=== PATIENT | female | born 1960 | race Caucasian/White ===

== ENCOUNTER 2025-05-08 08:32 | Outpatient (REF) | payer OTHER, SELFPAY ==
--- NOTE | ~2025-05-08 | XR_ITS ---
CLINICAL HISTORY: K63.9 - Disease of intestine, unspecified 3 view bilateral hand Comparison: None Findings: Left hand: There is joint space narrowing and marginal osteophyte formation at the 2nd-5th DIP joints. The metacarpophalangeal joint spaces are preserved. No acute fracture or dislocation is identified. Soft tissue structures appear within normal limits. Right hand: There is joint space narrowing and marginal osteophyte formation at the 2nd-4th DIP joints and radiocarpal joint. The metacarpophalangeal joint spaces are preserved. No acute fracture or dislocation is identified. Chondrocalcinosis is seen in the triangular fibrocartilage complex. IMPRESSION: 1. Degenerative changes in bilateral hands. 2. Chondrocalcinosis in the right triangular fibrocartilage complex. This document has been electronically signed by: Nithya Patrick on 05/09/2025 09:04:49
--- NOTE | ~2025-05-08 | XR_ITS ---
CLINICAL HISTORY: K63.9 - Disease of intestine, unspecified 8 view bilateral wrist Comparison: None Findings: Right wrist: Radiocarpal joint space narrowing and marginal osteophyte formation is present. No acute fracture or dislocation is identified. Chondrocalcinosis is seen of the triangular fibrocartilage complex. Left wrist: Mild radiocarpal joint space narrowing is present. No acute fracture or dislocation is identified. Soft tissue structures appear within normal limits. IMPRESSION: 1. Mild degenerative changes in bilateral radiocarpal joints. 2. Chondrocalcinosis in the right triangular fibrocartilage complex. This document has been electronically signed by: Nithya Patrick on 05/09/2025 08:57:22
--- NOTE | ~2025-05-08 | XR_ITS ---
CLINICAL HISTORY: K63.9 - Disease of intestine, unspecified 3 view bilateral foot Comparison: None Findings: Right foot: No acute fracture or dislocation is identified. Degenerative changes are seen at the midfoot with joint space narrowing of the 2nd and 3rd tarsometatarsal joints. Small plantar calcaneal enthesophyte is present. Subcutaneous edema is seen in the dorsal foot. Left foot: No acute fracture or dislocation is identified. Small plantar and posterior calcaneal enthesophytes are present. Subcutaneous edema is seen in the dorsal foot. IMPRESSION: 1. No acute osseous abnormality is identified in bilateral feet. 2. Degenerative changes in the right midfoot with joint space narrowing of the 2nd and 3rd tarsometatarsal joints. 3. Small bilateral calcaneal enthesophytes. This document has been electronically signed by: Nithya Patrick on 05/09/2025 08:51:30
--- NOTE | ~2025-05-08 | XR_ITS ---
CLINICAL HISTORY: K63.9 - Disease of intestine, unspecified 4 view bilateral knee Comparison: None Findings: Right knee: Mild medial femorotibial joint space narrowing and marginal osteophyte formation is present. No acute fracture or dislocation is identified. Chondrocalcinosis is present. Small joint effusion is present. Left knee: Mild marginal osteophyte formation is seen in the medial femorotibial joint. The femorotibial joint space appears preserved. No acute fracture or dislocation is identified. Soft tissue structures appear within normal limits. IMPRESSION: 1. No acute osseous abnormality is identified in bilateral knees. 2. Mild degenerative changes of the right medial femorotibial joint with chondrocalcinosis and small joint effusion. 3. Mild degenerative changes of the left medial femorotibial joint. This document has been electronically signed by: Nithya Patrick on 05/09/2025 08:50:58
[2025-05-08 10:15] LABS: MANUAL DIFF FLAG NO
[2025-05-08 10:54] LABS: Basophils Percent Auto 0.3 % (0-2); Eosinophils Absolute Auto 0.1 X10*3/uL (0.0-0.4); Eosinophils Percent Auto 0.9 % (0-4); Hematocrit 34.3 % (37.0-47.0); Hemoglobin 11.8 g/dl (12.0-16.0); Imm Gran Abs Auto 0.05 X10*3/uL (0.00-0.03); Imm Gran Pct Auto 0.8 % (0.0-0.4); Lymphocytes Absolute Auto 1.4 X10*3/uL (1.2-4.9); Lymphocytes Percent Auto 21.4 % (20-40); Mean Corpuscular HGB Conc 34.4 g/dl (31.0-35.0); Mean Corpuscular Hemoglobin 30.4 pg (27.0-33.0); Mean Corpuscular Volume 88.4 fL (80.0-98.0); Mean Platelet Volume 9.1 fL (9.4-12.3); Monocytes Absolute Auto 0.5 X10*3/uL (0.1-1.2); Monocytes Percent Auto 7.2 % (2-11); Neutrophils Absolute Auto 4.6 x10*3/uL (2.0-8.3); Neutrophils Percent Auto 69.4 % (45-73); Platelet Count 257 X10*3/uL (160-400); Red Blood Count 3.88 X10*6/uL (4.20-5.50); Red Cell Distribution Width 12.7 % (11.0-16.0); White Blood Count 6.6 X10*3/uL (4.8-10.8)
[2025-05-08 11:43] LABS: Alanine Aminotransferase 22 U/L (0-31); Albumin Level 4.6 g/dL (3.5-5.0); Alkaline Phosphatase 71 U/L (39-117); Anion Gap 12 (12-20); Aspartate Amino Transferase 22 U/L (5-31); Bilirubin Total 0.7 mg/dL (0.0-1.0); Blood Urea Nitrogen 10 mg/dL (9-16); C Reactive Protein 0.69 mg/dL (< or = 0.50); Calcium 9.3 mg/dL (8.4-10.2); Carbon Dioxide 24 mmol/L (22-29); Chloride 108 mmol/L (96-108); Estimated Glomerular Filt Rate > 60; Glucose Random 97 mg/dL (60-115); Potassium 3.6 mmol/L (3.3-5.1); Sodium 140 mmol/L (135-145)
[2025-05-08 11:47] LABS: Rheumatoid Factor < 13.0 IU/mL (<15.0)
[2025-05-08 11:55] LABS: Erythrocyte Sedimentation Rate 9 MM/HR (0-20)
[2025-05-08 12:10] LABS: HBc Num1 0.07 S/CO (0.00-0.79); HBsAGNum1 0.31 S/CO (0.00-0.99); Hepatitis A Antibody IgM 0.16 Index (0-0.79); Hepatitis B Core Antibody Nonreactive (Nonreactive); Hepatitis B Surface Antigen Negative (Negative); ~HepC Num1 0.09 S/CO (0.00-0.79); ~Hepatitis A Antibody IgM Nonreactive (Nonreactive); ~Hepatitis B Surface Antibody NONREACTIVE (Nonreactive); ~Hepatitis C Antibody Nonreactive (Nonreactive)
[2025-05-11 08:33] LABS: TS Negative Control Passed; TS Panel A 0; TS Panel B 0; TS Positive Control Passed; TSpotTB Negative (Negative)
[2025-05-14 13:48] LABS: Cyclic Citrullinated Peptide 79 UNITS
== END 2025-05-08 08:33 | disposition home or self-care (01) ==
LOC: HO.XRAY 08:32
PROVIDERS: PCP Student in an Organized Health Care Education/Training Program; Visit Provider Student in an Organized Health Care Education/Training Program
DX: K63.9 Disease of intestine, unspecified (principal); M07.60 Enteropathic arthropathies, unspecified site; K50.90 Crohn's disease, unspecified, without complications
CPT/HCPCS: 36415; 73110; 73130; 73562; 73620; 80053; 85025; 85652; 86140; 86200; 86431; 86481; 86704; 86706; 86709; 86803; 87340; 99202

== ENCOUNTER 2025-05-08 08:32 | Outpatient (AMB) | payer OTHER, SELFPAY ==
--- NOTE | 2025-05-08 08:35 | A.OFFVIS_ITS ---
Vital Signs 05/08/25 08:55 Height 5 ft Weight 175 lb 4.28 oz BMI 34.2 BP 134/80 Blood Pressure Location Lt brachial Position Sitting Pulse 69 Pulse Source Pulse Oximeter Pulse Oximetry (%) 98 Oxygen Delivery Method Room Air Intake Visit Reasons: RA (urgent referral) /New Patient Intake Note: Patient presents for RA. Allergies penicillin V Allergy (Severe, Verified 05/08/25 08:44) Hives aspirin Allergy (Mild, Verified 05/08/25 08:44) Heartburn sodium sulfate Allergy (Mild, Verified 05/08/25 08:44) Nausea Medication List - Last Reconciled 05/08/25 by Milli Diehl MD amlodipine-olmesartan 5-20 mg 1 tab PO DAILY ezetimibe 10 mg PO DAILY upadacitinib ER (Rinvoq) 15 mg PO DAILY HPI Comments Details: Patient is a 64-year-old female with hypertension, hyperlipidemia, Crohn's disease complicated by IBD related inflammatory arthritis here today to establish care Patient recently moved to the area from [place] Crohn's disease, diagnosed in her 20s. Started on azol Follows with GI and gets colonoscopies every 2 years Has had a few hospitalizations for abdominal pain/flares that resolved with prednisone Rheumatoid arthritis diagnosed 2018 Previously on Methotrexate SC - did not tolerate the side effects Leflunomide effective for a few years but then had breakthrough synovitis 11/2024 Switched to Rinvoq - 12/2024 Currently holding her Rinvoq in preparation for her spinal surgery 05/13/2025 Family History: Dad - Eczema Sister - Lupus Sister - Fibromyalgia [facility] Surgical History (Updated 05/08/25 @ 08:50 by PERLITA West) History of shoulder replacement Family History (Updated 05/08/25 @ 08:53 by PERLITA West) Maternal Grandmother Cancer Paternal Grandmother COPD (chronic obstructive pulmonary disease) Sister Cancer Social History (Updated 05/08/25 @ 08:55 by PERLITA West) Household Members: Family Housing: House Alcohol intake: current Comment: Rare Patient Tobacco Use Status: Former Tobacco user Years Smoked: 10 Review of Systems Const Details: Review of Systems Constitutional: Denies fever, chills, weight loss ENT: Denies vision changes, eye pain or eye redness, dental caries, dry mouth GI: Denies nausea, vomiting, diarrhea, abdominal pain, change in BM Pulm: Denies SOB, SOLIS, hemoptysis, wheezing Cards: Denies chest pain, palpitations Skin: Denies Raynaud's, rash, nail changes, photosensitivity, [employer]: Denies headaches, weakness, paresthesias, recurrent falls MSK: as per HPI All other systems reviewed and are unremarkable except noted above Physical Exam Vital Signs: Last Vital Signs Pulse 69 05/08/25 08:55 BP 134/80 05/08/25 08:55 Pulse Ox 98 05/08/25 08:55 Oxygen Delivery Method Room Air 05/08/25 08:55 BMI result Body Mass Index 34.2 Vital signs reviewed Physical Examination CONSTITUITIONAL Patient alert and cooperative. Well appearing and in no apparent painful distress HEENT Conjunctiva and sclera clear. ?No lymphadenopathy. ? CHEST/RESPIRATORY SYSTEM Normal respiratory effort and able to speak in complete sentences. ?Clear to auscultation bilaterally. ?No crackles, rales, rhonchi, wheezes heard. CARDIAC SYSTEM Regular rate and rhythm. ?S1 and S2 heard no murmurs. ?Radial pulses intact bilaterally MSK Hands: ?Able to make a fist. No synovitis noted to the MCPs, PIPs or DIPs. ?No tenderness to palpation of these joints. No deformities noted. ? Wrists: ?Full range of motion at the wrists without pain. ?No tenderness to palpation or synovitis noted to the wrists. Elbows: Full range of motion without pain. No tenderness, weakness, swelling, increased warmth or erythema. Shoulders: Full range of active range of motion without pain. No tenderness, weakness, swelling, increased warmth or erythema. Knees: ?Full range of motion. ?No tenderness, swelling, increased warmth or eryt neeida.?Crepitations felt bilaterally Ankles: Full range of motion. ?No tenderness, swelling, increased warmth or erythema.? 2+ pitting edema up to the tibial tuberosity bilaterally Feet: ?Negative squeeze test. ?No tenderness to palpation or swelling of the MTPs. Tender points:?No tenderness to palpation of the bilateral trapezius, supraspinatus, greater trochanters, anterior costochondral junctions, bilateral gluteal areas, bilateral suboccipital muscle insertions SKIN Skin intact without rashes. Results Reviewed Results Reviewed: No results to review Assessment & Plan Assessment & Plan (1) Inflammatory bowel arthritis: Comment: Inflammatory arthritis diagnosed 2019 Previously on Methotrexate SC - did not tolerate the side effects Leflunomide effective for a few years but then had breakthrough synovitis 11/2024 Switched to Rinvoq - 12/2024 Code(s): K63.9 - Disease of intestine, unspecified; M07.60 - Enteropathic arthropathies, unspecified site Category: Medical Plan: Patient is a 64-year-old female with history of Crohn's disease now we will presenting to establish care for inflammatory arthritis. Previously diagnosed with rheumatoid arthritis versus Crohn's related arthritis. Currently on Rinvoq, this is being held in preparation for spinal surgery next week. On exam I do not see any evidence of inflammatory arthritis or active synovitis. We will check x-rays, labs and get prior authorization for Rinvoq. Plan - CBC, CMP, ESR, CRP, hepatitis panel, T spot, RF, CCP - XRs hands, wrists, knees and feet - Rinvoq 15mg daily - RTC 3 months Plan I spent 45 minutes reviewing the record and labs, taking a history, examining the patient, discussing the treatment plan, ordering diagnostic work up and documenting in the medical record Orders: Orders Complete Blood Count Auto Diff Today K50.90 - Crohn's disease, unspecified, without complications, K63.9 - Disease of intestine, unspecified, M07.60 - Enteropathic arthropathies, unspecified site Comprehensive Met. Panel Today K50.90 - Crohn's disease, unspecified, without complications, K63.9 - Disease of intestine, unspecified, M07.60 - Enteropathic arthropathies, unspecified site Erythrocyte Sedimentation Rate Today K50.90 - Crohn's disease, unspecified, without complications, K63.9 - Disease of intestine, unspecified, M07.60 - Enteropathic arthropathies, unspecified site Hepatitis A,B,C Profile Today K50.90 - Crohn's disease, unspecified, without complications, K63.9 - Disease of intestine, unspecified, M07.60 - Enteropathic arthropathies, unspecified site XR foot LT min 3V Today K63.9 - Disease of intestine, unspecified, M07.60 - Enteropathic arthropathies, unspecified site XR foot RT min 3V Today K63.9 - Disease of intestine, unspecified, M07.60 - Enteropathic arthropathies, unspecified site XR hand RT min 3V Today K63.9 - Disease of intestine, unspecified, M07.60 - Enteropathic arthropathies, unspecified site XR wrist LT min 3V Today K63.9 - Disease of intestine, unspecified, M07.60 - Enteropathic arthropathies, unspecified site C Reactive Protein Today K50.90 - Crohn's disease, unspecified, without complications, K63.9 - Disease of intestine, unspecified, M07.60 - Enteropathic arthropathies, unspecified site Rheumatoid Factor Today K50.90 - Crohn's disease, unspecified, without complications, K63.9 - Disease of intestine, unspecified, M07.60 - Enteropathic arthropathies, unspecified site Cyclic Citrullinated Peptide Today K50.90 - Crohn's disease, unspecified, without complications, K63.9 - Disease of intestine, unspecified, M07.60 - Enteropathic arthropathies, unspecified site T Spot TB Today K50.90 - Crohn's disease, unspecified, without complications, K63.9 - Disease of intestine, unspecified, M07.60 - Enteropathic arthropathies, unspecified site XR knee LT 3V Today K63.9 - Disease of intestine, unspecified, M07.60 - Enteropathic arthropathies, unspecified site XR knee RT 3V Today K63.9 - Disease of intestine, unspecified, M07.60 - Enteropathic arthropathies, unspecified site XR hand LT min 3V Today K63.9 - Disease of intestine, unspecified, M07.60 - Enteropathic arthropathies, unspecified site XR wrist RT min 3V Today K63.9 - Disease of intestine, unspecified, M07.60 - Enteropathic arthropathies, unspecified site Medications: New upadacitinib ER (Rinvoq) 15 mg PO DAILY 30 tabs 5RF K50.90 - Crohn's disease, unspecified, without complications, K63.9 - Disease of intestine, unspecified, M07.60 - Enteropathic arthropathies, unspecified site Coding Level of Care Code New Pt Level 4 (51915) Complex EM visit Add On G2211 Diagnoses Inflammatory bowel arthritis K63.9; M07.60
--- OUTSIDE RECORDS SUMMARY | 2025-05-08 08:44 | XMS_ITS | Clinical Summary ---
Author Organization [address] [facility] Address [address] [place] [address] Phone Care Team Providers Care Data Modeling Architect Name Role Phone Shala Hagan MD Primary Care Provider [phone] Allergies Active Allergy Reactions Criticality Noted Date Comments Aspirin Diarrhea,GI intolerance High 10/26/2017 Iodinated Contrast Media Hives High 12/11/2024 Losartan Headache 01/29/2018 Penicillins Hives,Itching High 10/26/2017 Sulfa (Sulfonamide Antibiotics) Nausea Only 10/26/2017 Medications cholecalciferol (VITAMIN D-3) 10 mcg (400 unit) tablet Take 25 Units by mouth daily. Active fluticasone propionate (FLONASE) 50 mcg/actuation nasal spray Administer 2 sprays into affected nostril(s) 1 (one) time each day if needed. Active upadacitinib (Rinvoq) 15 mg tablet extended release 24 hr Take 15 mg by mouth daily. Checking with surgeons office when to stop 5 Active amLODIPine-olme sartan (RODERICK) 5-20 mg per tablet Take 1 tablet by mouth 1 (one) time each day. 90 tablet 1 5 10/04/20 25 Active ezetimibe (ZETIA) 10 mg tablet Take 1 tablet (10 mg total) by mouth 1 (one) time each day. 90 each 1 5 10/04/20 25 Active MAGNESIUM GLYCINATE ORAL Take 240 mg by mouth 1 (one) time each day. Active vit B complex no.12/niacin,B3 , (VITAMIN B COMPLEX NO.12-NIACIN ORAL) Take by mouth. Activ e Active Problems Problem Noted Date Diagnosed Date Radiculopathy, lumbar region 04/28/2025 Rheumatoid arthritis in delphine ssion ([facility] V24, [facility] V28) 04/07/2025 Primary hypertension 04/07/2025 Mixed hyperlipidemia 04/07/2025 H/O Crohn's disease 04/07/2025 History of renal stone 04/07/2025 Plantar fasciitis, bilateral 04/07/2025 Lumbar disc herniation 04/07/2025 Assessment & Plan (04/25/2025 11:30 AM EDT): I reviewed the imaging findings in detail with Ms. Diop using a spine model and I believe she is symptomatic from the right L5-S1 disc herniation particular the component compressing the exiting L5 root in the foramen. We discussed treatment options including physical therapy +/- traction, a right L5 TFE and a microdiscectomy. At this point, she has been dealing with this for nearly 2 years and it is significantly impacting her daily life. She would like to proceed with definitive treatment and be able to move on. We discussed the details, risk, benefits and anticipated postoperative course of a right L5-S1 MIS discectomy, all questions were answered and she wishes to proceed. Encounters Date Type Department Care Team Description 04/25/2025 10:30 AM EDT Consult Neurosurgery [facility] - [address] [place] [address] Chelsi Nicole MD Lumbar disc herniation 04/07/2025 10:45 AM EDT Office Visit Internal Medicine - [address] [place] [phone] Shala Hagan MD Adult general medical examination (Primary Dx); Other fatigue; Rheumatoid arthritis in remission ([facility] V24, [facility] V28); Seasonal allergies; Mixed hyperlipidemia; Primary hypertension; Vitamin D deficiency; H/O Crohn's disease; History of renal stone; Plantar fasciitis, bilateral; Other abnormal glucose; Lumbar disc herniation from Last 3 Months Surgical History Surgery Date Site/Laterality Comments OTHER SURGICAL HISTORY Right PROCEDURE: [place] EXC LESION TENDON SHEATH/CAPSULE W/SYNVCT FOOT; COMMENT: Ganglion cyst HAND SURGERY PROCEDURE: HISTORICAL HAND SURGERY BREAST LUMPECTOMY PROCEDURE: HISTORICAL BREAST LUMPECTOMY COLONOSCOPY 10/23/2017 PROCEDURE: HISTORICAL COLONOSCOPY; COMMENT: Tubular Adenomas. Repeat 5 yrs SHOULDER SURGERY Left PLANTAR FASCIA SURGERY Bilateral TOTAL SHOULDER ARTHROPLASTY Left Medical History Medical History Date Comments GERD (gastroesophageal reflux disease) 12/11/2018 hx of Osteoarthritis 10/26/2017 DX:Osteoarthriti s; COMMENT: knee Allergic rhinitis 12/03/2015 DX:Allergic rh initis Crohn's disease ([facility] V24 , [facility] V28) 10/26/2017 DX:Crohn's disease ([facility]) Essential hypertension 02/05/2018 DX:Essent ial hypertension Hyperlipidemia 10/26/2017 DX:Hyperlipidemi a Recurrent nephrolithiasis 10/26/2017 DX:Rec urrent nephrolithiasis Tubular adenoma 12/11/2018 DX:Tubular adeno ma Rheumatoid arthritis in delphine ssion ([facility] V24, [facility] V28) 04/07/2025 H/O Crohn's disease 04/07/2025 History of renal stone 04/07/2025 Plantar fasciitis, bilateral 04/07/2025 Rheumatoid arthritis ([facility] V24, [facility] V28) Crohn's disease ([facility] V24 , [facility] V28) Hiatal hernia Social History Tobacco Use Types Packs/Day Years Used Date Smoking Tobacco: Former Cigarettes 0 11/27/1978 - 11/27/2003 Smokeless Tobacco: Never Alcohol Use Standard Drinks/Week Comments Yes 0 (1 standard drink = 0.6 oz pur e alcohol) RARE Housing Instability Answer Date Recorde d Are you worried that in the next 2 months you may not have stable housing? No 04/02/2025 Food Access & Nutrition Answer Date Rec orded Do you have access to a vari ety of food including fruits and vegetables? Yes 04/02/2025 Access to Healthcare Answer Date Record ed Within the last 3 months, [place] many times did you visit the emergency department for your medical care? 0 04/02/2025 Health Literacy Answer Date Recorded How often do you need to hav e someone help you when you read instructions, pamphlets, or other written material from your doctor or pharmacy? Never 04/02/2025 Caregiver: How often do you need to have someone help you when you read instructions, pamphlets, or other written material from your doctor or pharmacy? Not on file 04/02/2025 Financial Risk Answer Date Recorded How hard is it for you to pa y for the very basics like food, housing, medical care, and air conditioning / heating? Not very hard 04/02/2025 Transportation Answer Date Recorded Has the lack of transportati on kept you from meetings, work, or from getting things needed for daily living? No Has the lack of transportati on kept you from medical appointments or from getting medications? No 04/02/2025 Social Isolation Answer Date Recorded How often do you feel lonely or isolated from th ose around you? Never 04/02/2025 Food Risk Answer Date Recorded Within the past 12 months we worried whether our food would run out before we got money to buy more. Never true 04/02/2025 Within the past 12 months th e food we bought just didn't last and we didn't have money to get more. Never true 04/02/2025 Dependent Care Answer Date Recorded Do you need help finding or paying for care for your loved ones. For example, summer child caregiver or elderly care for an older adult? No 04/02/2025 Education Answer Date Recorded Do you think completing more education or training, like finishing a GED, going to college, or learning a trade, would be helpful for you? N/A 04/02/2025 Employment and Income Answer Date Recor ded During the last four weeks, have you been actively looking for work? No 04/02/2025 Living Situation Answer Date Recorded What is your living situation? 0 04/02/2025 Education Answer Date Recorded What is the highest level of school you have completed or the highest degree you have received? High school graduate 04/07/2025 Comments Unknown Sex and Gender Information Value Date Recorded Sex Assigned at Not on file Legal Sex Female 2:38 AM EST Gender Identity Not on file Sexual Orientation Not on file Obstetrics History Last Filed Vital Signs Vital Sign Reading Time Taken Comments Blood Pressure 112/65 04/07/2025 10:58 AM EDT Pulse 87 04/07/2025 10:58 AM EDT Temperature 36.6 ??C (97.8 ??F) 04/07/2025 10:58 AM E DT Respiratory Rate - - Oxygen Saturation 98% 04/07/2025 10:58 AM EDT Inhaled Oxygen Concentration - - Weight 76.2 kg (168 lb) 05/06/2025 11:00 AM EDT Height 152.4 cm (5') 05/06/2025 11:00 AM EDT Body Mass Index 32.81 05/06/2025 11:00 AM EDT Plan of Treatment Upcoming Encounters Date Type Department Care Team (Latest Contact Info) Description 05/13/2025 11:30 AM EDT Hospital Encounter [facility] [address] [place] [phone] Chelsi Nicole MD [address] [place] [address] 05/13/2025 11:30 AM EDT - 05/13/2025 1:[address] [facility] [address] [place] [phone] Chelsi Nicole MD [address] [place] [address] RIGHT L5-S1 microlumbar discectomy/metrix [49819 (CPT??)] 05/26/2025 9:40 AM EDT Consult Gastroenterology - [address] [phone] Maryellen Valentine NP [address] [place] [address] 10/16/2025 10:00 AM EST Office Visit Internal Medicine - [address] [phone] Shala Hagan MD [address] [address] Scheduled Procedures Name Priority Associated Diagnoses Date/Ti me DISCECTOMY LUMBAR Radiculopathy, lumbar region 05/13/2025 11:30 AM EDT Health Maintenance Due Date Last Done Comments Breast Cancer Screening 1961 Cervical Cancer Screening: Pap Smear 1982 Zoster Vaccines (1 of 2) 2011 Pneumococcal Vaccine: 50+ Years (2 of 2 - PCV) 07/19/2018 07/19/2017 COVID-19 Vaccine (2 - Moderna risk series) 01/27/2021 12/30/2020 Colorectal Cancer Screening: Colonoscopy 03/28/2025 HIV Screening 03/28/2025 Influenza Vaccine (Season Ended) 2025 08/05/2021, 09/03/2019, 07/28/2017, Additional history exists Depression Screening 04/02/2026 04/02/2025 Social Influencers of Health Screening 04/02/2026 04/02/2025 Hypertension/CHF/CAD Annual BMP Blood Test 04/07/2026 04/07/2025, 07/04/2021 DTaP,Tdap,and Td Vaccines (2 - Td or Tdap) 12/08/2026 12/08/2016 Cholesterol Screening (Lipid Panel) 04/07/2030 04/07/2025 RSV Immunization Adult Patients (1 - 1-dose 75+ series) 2036 Pneumococcal Vaccine: Pediatrics (0 to 5 Years) and At-Risk Patients (6 to 64 Years) Aged Out 07/19/2017 No longer eligible based on patient's age to complete this topic Hepatitis C Screening Completed 01/01/2025 HIB Vaccines Aged Out No longer eligi ble based on patient's age to complete this topic HPV Vaccines Aged Out No longer eligi ble based on patient's age to complete this topic Hepatitis A Vaccines Aged Out No long er eligible based on patient's age to complete this topic Hepatitis B Vaccines Aged Out No long er eligible based on patient's age to complete this topic IPV Vaccines Aged Out No longer eligi ble based on patient's age to complete this topic MMR Vaccines Aged Out No longer eligi ble based on patient's age to complete this topic Meningococcal ACWY Vaccine Aged Out N o longer eligible based on patient's age to complete this topic Meningococcal B Vaccine Aged Out No l onger eligible based on patient's age to complete this topic RSV Immunization Patients Under 20 months Aged Out No longer eligible based on patient's age to complete this topic Varicella Vaccines Aged Out No longer eligible based on patient's age to complete this topic Procedures Procedure Name Priority Date/Time Associated Diagnosis Comments CBC WITH AUTO DIFFERENTIAL Routine 04/07/2025 11:35 AM EDT Adult general medical examination Other fatigue CBC AND DIFFERENTIAL Routine 04/07/2025 11:35 AM EDT Adult general medical examination Other fatigue HEMOGLOBIN A1C Routine 04/07/2025 11:35 AM EDT Adult general medical examination Other abnormal glucose VITAMIN B12 Routine 04/07/2025 11:35 AM EDT Adult general medical examination Other fatigue COMPREHENSIVE METABOLIC PANEL Routine 04/07/2025 11:35 AM EDT Adult general medical examination Other fatigue LIPID PANEL WITH REFLEX TO DIRECT LDL Routine 04/07/2025 11:35 AM EDT Adult general medical examination Mixed hyperlipidemia VITAMIN D 25 HYDROXY Routine 04/07/2025 11:35 AM EDT Adult general medical examination Vitamin D deficiency THYROID STIMULATING HORMONE WITH REFLEX TO FREE T4 AND FREE T3 Routine 04/07/2025 11:35 AM EDT Adult general medical examination Other fatigue from Last 3 Months Results * Thyroid stimulating hormone with reflex to free t4 and free t3 (04/07/2025 11:35 AM EDT) TSH 1.18 0.40 - 4.00 mcIU/mL LAB CHEMISTRY METHOD 04/07/2025 4:11 PM EDT [facility] Blood Venous blood specimen / Unknown Venipuncture / Unknown 04/07/2025 11:35 AM EDT 04/07/2025 11:35 AM EDT us Shala Hagan MD LAB BLOOD ORDERABLES Final Resul t [facility] [address] [place] [address], [place] [phone] * (ABNORMAL) Lipid panel with reflex to direct LDL (04/07/2025 11:35 AM EDT) Cholesterol 207(H) 0 - 200 mg/dL LAB CHEMISTRY METHOD 04/07/2025 3:44 PM EDT [facility] Triglycerides 69 0 - 150 mg/dL LAB CHEMISTRY METHOD 04/07/2025 3:44 PM EDT [facility] HDL 73 >=40 mg/dL LAB CHEMISTRY METHOD 04/07/2025 3:44 PM EDT [facility] LDL Calculated 120(H) 0 - 100 mg/dL LAB CHEMISTRY METHOD 04/07/2025 3:44 PM EDT [facility] VLDL Cholesterol Wade 13.8 mg/dL LAB CHEMISTRY METHOD 04/07/2025 3:44 PM EDT [facility] Non HDL Chol. (LDL+VLDL) 134 <145 mg/dL LAB CHEMISTRY METHOD 04/07/2025 3:44 PM EDT [facility] Chol/HDL Ratio 2.8 0.0 - 4.4 LAB CHEMISTRY METHOD 04/07/2025 3:44 PM EDT [facility] Blood Venous blood specimen / Unknown Venipuncture / Unknown 04/07/2025 11:35 AM EDT 04/07/2025 11:35 AM EDT Shala Hagan MD LAB BLOOD ORDERABLES Final Resul t [facility] [address] [place] [address], [place] [phone] * (ABNORMAL) CBC auto differential (04/07/2025 11:35 AM EDT) WBC 7.1 4.8 - 10.8 K/mcL LAB HEMETOLOGY METHOD 04/07/2025 2:24 PM EDT [facility] RBC 4.00 3.80 - 4.80 M/mcL LAB HEMETOLOGY METHOD 04/07/2025 2:24 PM EDT [facility] Hemoglobin 12.0 11.5 - 16.0 g/dL LAB HEMETOLOGY METHOD 04/07/2025 2:24 PM EDT [facility] Hematocrit 35.8 35.0 - 47.0 % LAB HEMETOLOGY METHOD 04/07/2025 2:24 PM EDT [facility] MCV 90.4 79.0 - 98.0 FL LAB HEMETOLOGY METHOD 04/07/2025 2:24 PM EDT [facility] MCH 30.3 27.0 - 32.0 pcg LAB HEMETOLOGY METHOD 04/07/2025 2:[facility] MCHC 33.5 32.0 - 37.0 g/dL LAB HEMETOLOGY METHOD 04/07/2025 2:24 PM [facility] RDW 12.9 11.0 - 15.0 % LAB HEMETOLOGY METHOD 04/07/2025 2:24 PM EDT [facility] Platelets 298 130 - 400 K/mcL LAB HEMETOLOGY METHOD 04/07/2025 2:24 PM [facility] MPV 9.7 7.0 - 11.0 FL LAB HEMETOLOGY METHOD 04/07/2025 2:24 PM [facility] NRBC 0.0 <1.0 % LAB HEMETOLOGY METHOD 04/07/2025 2:24 PM EDT [facility] NRBC Absolute 0.00 <0.10 K/mcL LAB HEMETOLOGY METHOD 04/07/2025 2:24 PM [facility] Neutrophils Relative 61.7 % LAB HEMETOLOGY METHOD 04/07/2025 2:24 PM [facility] Lymphocytes Relative 28.7 % LAB HEMETOLOGY METHOD 04/07/2025 2:24 PM EDT [facility] Monocytes Relative 7.0 % LAB HEMETOLOGY METHOD 04/07/2025 2:24 PM T [facility] Eosinophils Relative 1.3 % LAB HEMETOLOGY METHOD 04/07/2025 2:24 PM [facility] Basophils Relative 0.6 % LAB HEMETOLOGY METHOD 04/07/2025 2:24 PM [facility] Immature Granulocytes Relative 0.7 % LAB HEMETOLOGY METHOD 04/07/2025 2:24 PM [facility] Neutrophils Absolute 4.40 1.50 - 7.00 K/mcL LAB HEMETOLOGY METHOD 04/07/2025 2:24 PM [facility] Lymphocytes Absolute 2.04 1.00 - 5.00 K/mcL LAB HEMETOLOGY METHOD 04/07/2025 2:24 PM [facility] Monocytes Absolute 0.50 0.20 - 1.00 K/mcL LAB HEMETOLOGY METHOD 04/07/2025 2:24 PM [facility] Eosinophils Absolute 0.09 0.00 - 0.50 K/mcL LAB HEMETOLOGY METHOD 04/07/2025 2:24 PM [facility] Basophils Absolute 0.04 0.00 - 0.20 K/mcL LAB HEMETOLOGY METHOD 04/07/2025 2:24 PM [facility] Immature Granulocytes Absolute 0.05(H) 0.00 - 0.03 K/mcL LAB HEMETOLOGY METHOD 04/07/2025 2:24 PM [facility] Blood Venous blood specimen / Unknown Venipuncture / Unknown 04/07/2025 11:35 AM EDT 04/07/2025 11:35 AM EDT us Shala Hagan MD LAB BLOOD ORDERABLES Final Resul t Performing Organization Address [facility]/ZIP Co de Phone Number [facility] [address] [place] [address], [place] [phone] * (ABNORMAL) Vitamin D 25 hydroxy (04/07/2025 11:35 AM EDT) Pathologist [facility] Vit D, 25-Hydroxy 29.7(L) 30.0 - 80.0 ng/mL LAB CHEMISTRY METHOD 04/07/2025 4:11 PM EDT [facility] Blood Venous blood specimen / Unknown Venipuncture / Unknown 04/07/2025 11:35 AM EDT 04/07/2025 11:35 AM EDT us Shala Hagan MD LAB BLOOD ORDERABLES Final Resul t Performing Organization Address [facility] de Phone Number [facility] [address] [place] [address], * Hemoglobin A1c (04/07/2025 11:35 AM EDT) [facility] Hemoglobin A1C 5.5 <6.5 % LAB CHEMISTRY METHOD 04/07/2025 10:18 PM EDT [facility] Mean Bld Glu Estim. 111 mg/dL LAB CHEMISTRY METHOD 04/07/2025 10:18 PM EDT [facility] Blood Venous blood specimen / Unknown Venipuncture / Unknown 04/07/2025 11:35 AM EDT 04/07/2025 11:35 AM EDT us Shala Hagan MD LAB BLOOD ORDERABLES Final Resul t Performing Organization Address [facility] Co de Phone Number [facility] [address] [place] [address], [place] [phone] * (ABNORMAL) Vitamin B12 (04/07/2025 11:35 AM EDT) [facility] Vitamin B-12 911(H) 250 - 900 pcg/mL LAB CHEMISTRY METHOD 04/07/2025 4:07 PM [facility] Blood Venous blood specimen / Unknown Venipuncture / Unknown 04/07/2025 11:35 AM EDT 04/07/2025 11:35 AM EDT us Shala Hagan MD LAB BLOOD ORDERABLES Final Resul t [facility] [address] [place] [address], [place] [phone] * Comprehensive metabolic panel (04/07/2025 11:35 AM EDT) Sodium 141 133 - 145 mmol/L LAB CHEMISTRY METHOD 04/07/2025 3:44 PM [facility] Potassium 4.0 3.5 - 5.5 mmol/L LAB CHEMISTRY METHOD 04/07/2025 3:44 PM [facility] Chloride 109 96 - 110 mmol/L LAB CHEMISTRY METHOD 04/07/2025 3:44 PM [facility] CO2 28 21 - 32 mmol/L LAB CHEMISTRY METHOD 04/07/2025 3:44 PM [facility] Anion Gap 4 3 - 11 LAB CHEMISTRY METHOD 04/07/2025 3:44 PM [facility] Glucose 88 70 - 100 mg/dL LAB CHEMISTRY METHOD 04/07/2025 3:44 PM [facility] BUN 12 5 - 25 mg/dL LAB CHEMISTRY METHOD 04/07/2025 3:44 PM [facility] Creatinine 0.50 0.50 - 1.10 mg/dL LAB CHEMISTRY METHOD 04/07/2025 3:44 PM [facility] eGFR 106 >=60 mL/min/1. 73m2 LAB CHEMISTRY METHOD 04/07/2025 3:44 PM [facility] Comment:Calculation based on the Chronic Kidney Disease Epidemiology Collaboration (CKD-EPI) equation refit without adjustment for race. BUN/Creatinine Ratio 24.0 LAB CHEMISTRY METHOD 04/07/2025 3:44 PM T [facility] Calcium 9.5 8.5 - 10.5 mg/dL LAB CHEMISTRY METHOD 04/07/2025 3:44 PM [facility] AST (SGOT) 19 10 - 42 unit/L LAB CHEMISTRY METHOD 04/07/2025 3:44 PM T [facility] ALT (SGPT) 28 10 - 60 unit/L LAB CHEMISTRY METHOD 04/07/2025 3:44 PM [facility] Alkaline Phosphatase 89 42 - 121 unit/L LAB CHEMISTRY METHOD 04/07/2025 3:44 PM [facility] Total Protein 7.1 6.0 - 8.0 g/dL LAB CHEMISTRY METHOD 04/07/2025 3:44 PM EDT [facility] Albumin 4.2 3.2 - 5.0 g/dL LAB CHEMISTRY METHOD 04/07/2025 3:44 PM [facility] Total Bilirubin 0.5 0.0 - 1.4 mg/dL LAB CHEMISTRY METHOD 04/07/2025 3:44 PM T [facility] Blood Venous blood specimen / Unknown Venipuncture / Unknown 04/07/2025 11:35 AM EDT 04/07/2025 11:35 AM EDT us Shala Hagan MD LAB BLOOD ORDERABLES Final Resul t [facility] [address] [place] [address], [place] [phone] from Last 3 Months Insurance [facility] [employer] Care Teams Data Modeling Architect Relationship Specialty Start Date End Date Shala Hagan MD [address] [place] [id number] PCP - General Internal Medicine 03/28/25
[2025-05-08 08:55] VITALS: BP 134/80; PULSE 69; O2SAT 98; BMI 34.2
== END 2025-05-08 09:39 | disposition home or self-care (01) ==
LOC: HO.RHE 08:32
PROVIDERS: PCP Student in an Organized Health Care Education/Training Program; Visit Provider Student in an Organized Health Care Education/Training Program
DX: K63.9 Disease of intestine, unspecified (principal); M07.60 Enteropathic arthropathies, unspecified site
CPT/HCPCS: 99204; G2211

== ENCOUNTER → 2025-05-08 10:14 | Outpatient (BNV) | payer OTHER, SELFPAY | PROVIDERS: PCP Student in an Organized Health Care Education/Training Program; Visit Provider Radiology Vascular & Interventional Radiology | DX: K63.9 Disease of intestine, unspecified (principal); M19.041 Primary osteoarthritis, right hand; M19.042 Primary osteoarthritis, left hand; M19.031 Primary osteoarthritis, right wrist; M19.032 Primary osteoarthritis, left wrist; M11.231 Other chondrocalcinosis, right wrist; M19.071 Primary osteoarthritis, right ankle and foot; M77.30 Calcaneal spur, unspecified foot | CPT/HCPCS: 73110; 73130; 73562; 73620 ==

== ENCOUNTER 2025-07-17 09:53 | Outpatient (AMB) | payer OTHER, SELFPAY ==
--- NOTE | 2025-07-17 10:12 | MHC.OFFVIS ---
Vital Signs 07/17/25 10:17 Height 5 ft Weight 175 lb 11.335 oz BMI 34.3 BP 112/74 Blood Pressure Location Lt brachial Position Sitting Pulse 72 Pulse Source Pulse Oximeter Pulse Oximetry (%) 98 Oxygen Delivery Method Room Air Intake Visit Reasons: Feeling meds not working Intake Note: Patient presents for medication follow up. Allergies penicillin V Allergy (Severe, Verified 07/17/25 10:16) Hives aspirin Allergy (Mild, Verified 07/17/25 10:16) Heartburn sodium sulfate Allergy (Mild, Verified 07/17/25 10:16) Nausea Medication List - Last Reconciled 07/17/25 by Milli Diehl MD amlodipine-olmesartan 5-20 mg 1 tab PO DAILY ezetimibe 10 mg PO DAILY prednisone 5 mg PO .prn PRN upadacitinib ER (Rinvoq) 15 mg PO DAILY HPI Comments Details: Patient is a 64-year-old female with hypertension, hyperlipidemia, Crohn's disease complicated by IBD related inflammatory arthritis here today for follow up Interval History: Patient last seen 05/08/2025 - New patient, establishing care for management of IBD related inflammatory arthritis/seronegative RA - Previously on Rinvoq with good efficacy - Planning back surgery - Given prednisone to cover for a flare post op in the setting of holding her Rinvoq Today - Rinvoq 15mg daily - Does not feel the Rinvoq is working - Right knee pain and swelling yesterday, took prednisone 5mg which helped - Difficulty with stairs and going down to the floors - Stiffness in the knees and ankles - Feels like entire legs - Had back surgery April 2025 Rheumatologic History: Inflammatory Initial History: Patient is a 64-year-old female with hypertension, hyperlipidemia, Crohn's disease complicated by IBD related inflammatory arthritis here today to establish care Patient recently moved to the area from [place] Crohn's disease, diagnosed in her 20s. Started on azol Follows with GI and gets colonoscopies every 2 years Has had a few hospitalizations for abdominal pain/flares that resolved with prednisone Rheumatoid arthritis diagnosed 2018 Previously on Methotrexate SC - did not tolerate the side effects Leflunomide effective for a few years but then had breakthrough synovitis 11/2024 Switched to Rinvoq - 12/2024 Currently holding her Rinvoq in preparation for her spinal surgery 05/13/2025 Family History: Dad - Eczema Sister - Lupus Sister - Fibromyalgia Current Rheumatology Medication(s): Rinvoq 15mg daily PFSH Surgical History (Updated 05/08/25 @ 08:50 by PERLITA West) History of shoulder replacement Family History (Updated 05/08/25 @ 08:53 by PERLITA West) Maternal Grandmother Cancer Paternal Grandmother COPD (chronic obstructive pulmonary disease) Sister Cancer Social History (Updated 05/08/25 @ 08:55 by PERLITA Wset) Household Members: Family Housing: House Alcohol intake: current Comment: Rare Patient Tobacco Use Status: Former Tobacco user Years Smoked: 10 Review of Systems Const Details: Review of Systems Constitutional: Denies fever, chills, weight loss ENT: Denies vision changes, eye pain or eye redness, dental caries, dry mouth GI: Denies nausea, vomiting, diarrhea, abdominal pain, change in BM Pulm: Denies SOB, SOLIS, hemoptysis, wheezing Cards: Denies chest pain, palpitations Skin: Denies Raynaud's, rash, nail changes, photosensitivity, MANAGER SECONDARY: 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 Well appearing and in no apparent painful distress MSK Hands Right Hand: Able to make a fist. No swelling or tenderness to palpation of these joints. Left Hand: Able to make a fist. No swelling or tenderness to palpation of these joints. Herbedens nodes noted bilaterally Wrists Right Wrist: Full ROM. 70 degrees of wrist flexion, 80 degrees of wrist extension. No swelling or TTP Left Wrist: Full ROM. 70 degrees of wrist flexion, 80 degrees of wrist extension. No swelling or TTP Elbows Right Elbow: Full ROM. No swelling or TTP. No TTP of the medial and lateral epicondyles Left Elbow: Full ROM. No swelling or TTP. No TTP of the medial and lateral epicondyles Shoulders Right shoulder: Full ROM. No swelling noted. No TTP of the AC joint, subacromial bursa or posterior shoulder Left shoulder: Decreased ROM. No swelling noted. No TTP of the AC joint, subacromial bursa or posterior shoulder Knees Right knee: Full ROM. Mild swelling noted. No TTP of the knee joint line but TTP of pes anserine bursa Left knee: Full ROM. No swelling noted. No TTP of the knee joint lie or pes anserine bursa. Crepitations felt bilaterally Ankles Right ankle: Good ankle dorsiflexion and plantar flexion. No swelling. No TTP of the ankle joint Left ankle: Good ankle dorsiflexion and plantar flexion. No swelling. No TTP of the ankle joint Feet Right foot: Negative squeeze test Left foot: Negative squeeze test Tender points? No tenderness to palpation of the bilateral trapezius, supraspinatus, anterior costochondral junctions, bilateral suboccipital muscle insertions SKIN No rashes Vital Signs: Last Vital Signs Pulse 72 07/17/25 10:17 BP 112/74 07/17/25 10:17 Pulse Ox 98 07/17/25 10:17 Oxygen Delivery Method Room Air 07/17/25 10:17 BMI result Body Mass Index 34.3 Office Procedures AMB Joint Injection/Aspiration Joint Injection/Aspiration Details: Procedure was explained to the patient and informed consent was obtained. ? Risks associated with the procedure were discussed with the patient including but not limited to bleeding, infection, drug reactions and reactions to the topical anesthetic. Patient made aware of signs to look out for infectious complications. The area of interest was identified and confirmed with patient. ?This was subsequently cleaned with chlorhexidine x 2. ? The area was then anesthetized using ethyl chloride spray. 40 mg Kenalog with 1 cc 1% lidocaine was injected without issue. ?Minimal to no bleeding. ?Patient tolerated procedure. Primary Site: right knee Prep: site was prepped using aseptic technique and ethochloride spray was applied Injected: 40 mg of, Kenalog, with 1 mL of and 1% plain lidocaine Approach Used: anterior Procedure: The patient tolerated the procedure well Coding 20228 - Large joint Procedure code (CPT) selection complete AMB Joint Injection/Aspiration Joint Injection/Aspiration Details: Procedure was explained to the patient and informed consent was obtained. ? Risks associated with the procedure were discussed with the patient including but not limited to bleeding, infection, drug reactions and reactions to the topical anesthetic. Patient made aware of signs to look out for infectious complications. The area of interest was identified and confirmed with patient. ?This was subsequently cleaned with chlorhexidine x 2. ? The area was then anesthetized using ethyl chloride spray. 40 mg Kenalog with 1 cc 1% lidocaine was injected without issue. ?Minimal to no bleeding. ?Patient tolerated procedure. Primary Site: left knee Prep: site was prepped using aseptic technique and ethochloride spray was applied Injected: 40 mg of, Kenalog, with 1 mL of and 1% plain lidocaine Approach Used: anterior Procedure: The patient tolerated the procedure well Coding 26369 - Large joint Procedure code (CPT) selection complete Office Meds Kenalog 40 mg/mL suspension for injection Performing Provider: Milli Diehl MD Performing Location: [facility] [place] [facility] Administered by: Clarice Nielsen RN on 07/17/25 11:13 Dose Route Admin Location Dispensed Lot Number Expiration Date [facility] Medical Billing Manager 40 mg intra-articular knee right 1 mL [id number] 05/26/26 [address]-1 [employer] [place] [employer] 40 mg intra-articular knee left 1 mL [id number] 05/26/26 [address]-2 [employer] [place] [employer] Total Dispensed Waste 2 mL 0 % lidocaine (PF) 10 mg/mL (1 %) injection solution Performing Provider: Milli Diehl MD Performing Location: [facility] [place] [facility] Administered by: Clarice Nielsen RN on 07/17/25 11:19 Dose Route Admin Location Dispensed Lot Number Expiration Date [facility] Medical Billing Manager 1 mL Infiltration left knee joint 2 mL [id number] 04/26/27 98953-459-08 [employer] 1 mL Infiltration 2 mL [id number] [employer] Total Dispensed Waste 4 mL 50 % Kenalog 40 mg/mL suspension for injection Performing Provider: Milli Diehl MD Performing Location: [facility] [place] [facility] Administered by: Clarice Nielsen RN on 07/17/25 11:19 Dose Route Admin Location Dispensed Lot Number Expiration Date [facility] Medical Billing Manager 40 mg intra-articular left knee 1 mL [id number] 09/27/26 1670-0129-74 [facility] Total Dispensed Waste 1 mL 0 % Results Reviewed Results Reviewed: Laboratory Tests 05/08/25 10:13 WBC 6.6 RBC 3.88 L Hgb 11.8 L Hct 34.3 L Plt Count 257 ESR 9 Sodium 140 Potassium 3.6 Chloride 108 Carbon Dioxide 24 BUN 10 Creatinine 0.55 AST 22 ALT 22 C-Reactive Protein 0.69 H Laboratory Tests 05/08/25 10:13 Rheumatoid Factor < 13.0 Cycl Citrul Peptide IgG 79 H Laboratory Tests 05/08/25 10:13 Hepatitis A IgM Ab Nonreactive Hep Bs Antigen Negative Hep Bs Antibody NONREACTIVE Hep B Core Total Ab Nonreactive Hepatitis C Ab (EIA) Nonreactive TB Test (T-Spot) Com Negative XR Bilateral Knees 04/2025 Findings: Right knee: Mild medial femorotibial joint space narrowing and marginal osteophyte formation is present. No acute fracture or dislocation is identified. Chondrocalcinosis is present. Small joint effusion is present. Left knee: Mild marginal osteophyte formation is seen in the medial femorotibial joint. The femorotibial joint space appears preserved. No acute fracture or dislocation is identified. Soft tissue structures appear within normal limits. IMPRESSION: 1. No acute osseous abnormality is identified in bilateral knees. 2. Mild degenerative changes of the right medial femorotibial joint with chondrocalcinosis and small joint effusion. 3. Mild degenerative changes of the left medial femorotibial joint. XR Bilateral Feet 04/2025 Findings: Right foot: No acute fracture or dislocation is identified. Degenerative changes are seen at the midfoot with joint space narrowing of the 2nd and 3rd tarsometatarsal joints. Small plantar calcaneal enthesophyte is present. Subcutaneous edema is seen in the dorsal foot. Left foot: No acute fracture or dislocation is identified. Small plantar and posterior calcaneal enthesophytes are present. Subcutaneous edema is seen in the dorsal foot. IMPRESSION: 1. No acute osseous abnormality is identified in bilateral feet. 2. Degenerative changes in the right midfoot with joint space narrowing of the 2nd and 3rd tarsometatarsal joints. 3. Small bilateral calcaneal enthesophytes. XR Bilateral Wrists 03/2025 Findings: Right wrist: Radiocarpal joint space narrowing and marginal osteophyte formation is present. No acute fracture or dislocation is identified. Chondrocalcinosis is seen of the triangular fibrocartilage complex. Left wrist: Mild radiocarpal joint space narrowing is present. No acute fracture or dislocation is identified. Soft tissue structures appear within normal limits. IMPRESSION: 1. Mild degenerative changes in bilateral radiocarpal joints. 2. Chondrocalcinosis in the right triangular fibrocartilage complex. XR Bilateral Hands 03/2025 Findings: Left hand: There is joint space narrowing and marginal osteophyte formation at the 2nd-5th DIP joints. The metacarpophalangeal joint spaces are preserved. No acute fracture or dislocation is identified. Soft tissue structures appear within normal limits. Right hand: There is joint space narrowing and marginal osteophyte formation at the 2nd-4th DIP joints and radiocarpal joint. The metacarpophalangeal joint spaces are preserved. No acute fracture or dislocation is identified. Chondrocalcinosis is seen in the triangular fibrocartilage complex. IMPRESSION: 1. Degenerative changes in bilateral hands. 2. Chondrocalcinosis in the right triangular fibrocartilage complex. Assessment & Plan Assessment & Plan (1) Inflammatory bowel arthritis: Comment: Inflammatory arthritis diagnosed 2019 Previously on Methotrexate SC - did not tolerate the side effects Leflunomide effective for a few years but then had breakthrough synovitis 11/2024 Switched to Rinvoq - 12/2024 Code(s): K63.9 - Disease of intestine, unspecified; M07.60 - Enteropathic arthropathies, unspecified site Category: Medical Plan: #IBD arthritis/Seronegative RA Patient is a 64-year-old female with history of Crohn's disease c/b inflammatory arthritis. Seropositive rheumatoid arthritis versus Crohn's related arthritis. On exam I do not see any evidence of inflammatory arthritis or active synovitis. Plan - Rinvoq 15mg daily - Prednisone 5mg prn (10 pills per month) - RTC 4 months - Labs before visit: CBC, CMP, ESR, CRP (2) Polyarticular osteoarthritis: Code(s): M15.9 - Polyosteoarthritis, unspecified Plan: #Polyarticular OA Patient's correct complaints are related to her osteoarthritis. S/p bilateral knee injections Recommend her to follow up with her spine surgery for her leg stiffness (3) MCC (current) use of janus kinase inhibitor: Code(s): Z79.622 - buttermaker continuous churn (current) use of Janus kinase inhibitor Plan: #Long-term Use of JOHAN inhibitors: Xeljanz (Tofacitinib)/ Rinvoq (Upadacitinib)/ Olumiant (Baricitinib) Discussed with patient the benefits and risks of JOHAN inhibitors for the management of the rheumatic condition Benefits include reduce pain, maintenance of remission and reduction of flares Risks include thromboembolic events, skin cancer and nonmelanoma skin cancers, other forms of cancer, cardiovascular alcohol and mortality Advise patient that they are to hold the medication and for up to 1 week after a febrile illness or an open skin wound Plan I spent 30 minutes reviewing the record and labs, taking a history, examining the patient, discussing the treatment plan, ordering diagnostic work up and documenting in the medical record Orders: Orders AMB Joint Injection/Aspiration Today M25.561 - Pain in right knee, M25.562 - Pain in left knee AMB Joint Injection/Aspiration Today M25.561 - Pain in right knee, M25.562 - Pain in left knee Medications: Changed From prednisone see taper instructions: 15 mg x 5 days then 10mg x 5 days then 5 mg x 5 days then stop 5 mg PO DIRECTED 30 tabs 0RF K63.9 - Disease of intestine, unspecified, M07.60 - Enteropathic arthropathies, unspecified site To prednisone 5 mg PO .prn PRN 10 tabs 0RF joint pain and swelling K63.9 - Disease of intestine, unspecified, M07.60 - Enteropathic arthropathies, unspecified site Coding Level of Care Code Est Pt Level 4 (27560) Complex EM visit Add On G2211 Diagnoses Inflammatory bowel arthritis K63.9; M07.60 Polyarticular osteoarthritis M15.9 buttermaker continuous churn (current) use of janus kinase inhibitor Z79.622 CPT Codes Coding - 41408 Large joint: 03130 - Large joint ([id number]) Coding - 64549 Large joint: 38347 - Large joint ([id number])
[2025-07-17 10:17] VITALS: BP 112/74; PULSE 72; O2SAT 98; BMI 34.3
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
== END 2025-07-17 11:06 | disposition home or self-care (01) ==
LOC: HO.RHES 09:54
PROVIDERS: PCP Student in an Organized Health Care Education/Training Program; Visit Provider Student in an Organized Health Care Education/Training Program
DX: M25.561 Pain in right knee (principal); M25.562 Pain in left knee; K63.9 Disease of intestine, unspecified; M07.60 Enteropathic arthropathies, unspecified site; M15.9 Polyosteoarthritis, unspecified; Z79.622 Long term (current) use of Janus kinase inhibitor
CPT/HCPCS: 20610; 99214

== ENCOUNTER → 2025-07-17 09:53 | Outpatient (BNVA) | payer OTHER, SELFPAY | PROVIDERS: PCP Student in an Organized Health Care Education/Training Program; Visit Provider Student in an Organized Health Care Education/Training Program | DX: M15.9 Polyosteoarthritis, unspecified (principal); M25.561 Pain in right knee; M25.562 Pain in left knee; K63.9 Disease of intestine, unspecified; M07.60 Enteropathic arthropathies, unspecified site; Z79.622 Long term (current) use of Janus kinase inhibitor | CPT/HCPCS: 20610; 99212; J2003; J3300 ==

== ENCOUNTER 2025-11-12 10:35 | Outpatient (AMB) | payer OTHER, SELFPAY ==
--- NOTE | 2025-11-12 10:50 | A.OFFVIS_ITS ---
Vital Signs 11/12/25 11:00 Height 5 ft Weight 183 lb 13.848 oz BMI 35.9 BP 132/80 Blood Pressure Location Lt brachial Position Sitting Pulse 74 Pulse Source Pulse Oximeter Pulse Oximetry (%) 98 Oxygen Delivery Method Room Air Intake Visit Reasons: Swollen and pain in right hand Intake Note: Patient presents today for swollen and pain in right hand follow up. Orthotic Aide Required: No Information Interpreted: non-clinical & clinical Accompanied by: Self / Same As Patient Allergies penicillin V Allergy (Severe, Verified 11/12/25 10:59) Hives aspirin Allergy (Mild, Verified 11/12/25 10:59) Heartburn sodium sulfate Allergy (Mild, Verified 11/12/25 10:59) Nausea Medication List - Last Reconciled 11/12/25 by Milli Diehl MD amlodipine-olmesartan 5-20 mg 1 tab PO DAILY ezetimibe 10 mg PO DAILY HPI Comments Details: Patient is a 65-year-old female with hypertension, hyperlipidemia, Crohn's disease complicated by IBD related inflammatory arthritis here today for follow up Interval History: Patient last seen 07/17/2025 - On Rinvoq 15mg daily - Does not feel the Rinvoq is working - Right knee pain and swelling yesterday, took prednisone 5mg which helped - Difficulty with stairs and going down to the floors - Stiffness in the knees and ankles - Feels like entire legs - Had back surgery April 2025 Today - On Rinvoq 15mg daily - Urgent visit for worsening hand and wrist pain - She is experiencing a significant flare-up, currently affecting her right wrist and elbow, which she states is very sore and limits her ability to use her hand. - Last week, her thumb was immobile, and she has had previous successful cortisone injections in her wrist. - She also reports migratory pain, which was present in her leg last week, subsequently moved to her ankle, and is now located in the arch of her foot. - The patient experiences significant fatigue, starting around 2 p.m. and progressing to a state of being almost unable to move by 4 or 5 p.m. - For symptom relief, she occasionally takes 5 mg of leftover prednisone, which provides relief for about 24 hours before symptoms return. - She tries to avoid Advil and Tylenol due to concerns about her stomach and kidneys. - Her other medical conditions include hyperlipidemia and hypertension, managed with ezetimibe and amlodipine/olmesartan. - She has a history of hip bursitis and notes that corticosteroid injections for this have been very effective in the past, providing long-term relief. - She had a 'fishing' wrist surgery in the . Rheumatologic History: Inflammatory Initial History: Patient is a 64-year-old female with hypertension, hyperlipidemia, Crohn's disease complicated by IBD related inflammatory arthritis here today to establish care Patient recently moved to the area from [place] Crohn's disease, diagnosed in her 20s. Started on azol Follows with GI and gets colonoscopies every 2 years Has had a few hospitalizations for abdominal pain/flares that resolved with prednisone Rheumatoid arthritis diagnosed 2018 Previously on Methotrexate SC - did not tolerate the side effects Leflunomide effective for a few years but then had breakthrough synovitis 11/2024 Switched to Rinvoq - 12/2024 - 10/2025 ineffective Currently holding her Rinvoq in preparation for her spinal surgery 05/13/2025 Family History: Dad - Eczema Sister - Lupus Sister - Fibromyalgia Current Rheumatology Medication(s): Rinvoq 15mg daily PFSH Surgical History History of shoulder replacement Family History Maternal Grandmother Cancer Paternal Grandmother COPD (chronic obstructive pulmonary disease) Sister Cancer Social History Household Members: Family Housing: House Alcohol intake: current Comment: Rare Patient Tobacco Use Status: Former Tobacco user Years Smoked: 10 Review of Systems Narrative Review of Systems Constitutional: Denies fever, chills, weight loss ENT: Denies vision changes, eye pain or eye redness, dental caries, dry mouth GI: Denies nausea, vomiting, diarrhea, abdominal pain, change in BM Pulm: Denies SOB, SOLIS, hemoptysis, wheezing Cards: Denies chest pain, palpitations Skin: Denies Raynaud's, rash, nail changes, photosensitivity, 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 Well appearing and in no apparent painful distress MSK Hands * Right Hand: Able to make a fist. No swelling or tenderness to palpation of the MCPs, PIPs or DIPs. * Left Hand: Able to make a fist. No swelling or tenderness to palpation of the MCPs, PIPs or DIPs. * Herbedens nodes noted bilaterally Wrists * Right Wrist: Decreased ROM to flexion and extension. Swelling noted with TTP * Left Wrist: Good ROM to flexion and extension. No swelling or TTP Elbows * Right Elbow: Full ROM. No swelling or TTP. TTP of the medial epicondyle > TTP of the lateral epicondyle * Left Elbow: Full ROM. No swelling or TTP. No TTP of the medial epicondyle. No TTP of the lateral epicondyle Shoulders * Right shoulder: Full ROM. No swelling noted. No TTP of the AC joint. No TTP of the subacromial bursa. No TTP of the posterior shoulder * Left shoulder: Full ROM. No swelling noted. No TTP of the AC joint. No TTP of the subacromial bursa. No TTP of the posterior shoulder Hips * Right hip: Good ROM. No pain elicited with hip flexion/internal rotation/external rotation * Left hip: Good ROM. No pain elicited with hip flexion/internal rotation/external rotation Hip bursa: Tenderness to palpation bilaterally Knees * Right knee: Full ROM. No swelling noted. No TTP of the knee joint line. No TTP of pes anserine bursa * Left knee: Full ROM. No swelling noted. No TTP of the knee joint line. No TTP of pes anserine bursa. * Crepitations felt bilaterally Ankles * Right ankle: Good ankle dorsiflexion and plantar flexion. No swelling. No TTP of the ankle joint * Left ankle: Good ankle dorsiflexion and plantar flexion. No swelling. No TTP of the ankle joint Feet * Right foot: Negative squeeze test * Left foot: Negative squeeze test Tender points? * No tenderness to palpation of the bilateral trapezius, supraspinatus, anterior costochondral junctions, bilateral suboccipital muscle insertions SKIN No rashes Vital Signs: Last Vital Signs Pulse 74 11/12/25 11:00 BP 132/80 11/12/25 11:00 Pulse Ox 98 11/12/25 11:00 Oxygen Delivery Method Room Air 11/12/25 11:00 BMI result Body Mass Index 35.9 Office Procedures AMB Joint Injection/Aspiration Joint Injection/Aspiration Details: Procedure was explained to the patient and informed consent was obtained. ? Risks associated with the procedure were discussed with the patient including but not limited to bleeding, infection, drug reactions and reactions to the topical anesthetic. Patient made aware of signs to look out for infectious complications. The area of interest was identified and confirmed with patient. ?This was subsequently cleaned with chlorhexidine x 2. ? The area was then anesthetized using ethyl chloride spray. 40 mg Kenalog with 1 cc 1% lidocaine was injected without issue. ?Minimal to no bleeding. ?Patient tolerated procedure. Primary Site: Other (Right Wrist) Prep: site was prepped using aseptic technique and ethochloride spray was applied Injected: 40 mg of, with 1 mL of, 1% plain Lidocaine and in the joint Procedure: The patient tolerated the procedure well Coding 56636 - Medium joint Procedure code (CPT) selection complete Office Meds lidocaine (PF) 10 mg/mL (1 %) injection solution Performing Provider: Milli Diehl MD Performing Location: [facility] Administered by: Milli Diehl MD on 11/12/25 11:36 Dose Route Admin Location Dispensed Lot Number Expiration Date [facility] Le[employer] 1 mL Infiltration right wrist 2 mL [id number] 04/26/27 10177-225-10 F [employer] Total Dispensed Waste 2 mL 50 % Kenalog 40 mg/mL suspension for injection Performing Provider: Milli Diehl MD Performing Location: [facility] Administered by: Milli Diehl MD on 11/12/25 11:36 Dose Route Admin Location Dispensed Lot Number Expiration Date [facility] Leather [employer]aver 40 mg intra-articular right wrist 1 mL [id number] 05/26/27 [address] -1 [employer] Total Dispensed Waste 1 mL 0 % Results Reviewed Results Reviewed: Laboratory Tests 05/08/25 10:13 WBC 6.6 RBC 3.88 L Hgb 11.8 L Hct 34.3 L Plt Count 257 ESR 9 Sodium 140 Potassium 3.6 Chloride 108 Carbon Dioxide 24 BUN 10 Creatinine 0.55 AST 22 ALT 22 C-Reactive Protein 0.69 H Laboratory Tests 05/08/25 10:13 Rheumatoid Factor < 13.0 Cycl Citrul Peptide IgG 79 H Laboratory Tests 05/08/25 10:13 Hepatitis A IgM Ab Nonreactive Hep Bs Antigen Negative Hep Bs Antibody NONREACTIVE Hep B Core Total Ab Nonreactive Hepatitis C Ab (EIA) Nonreactive TB Test (T-Spot) Com Negative XR Bilateral Knees 04/2025 Findings: Right knee: Mild medial femorotibial joint space narrowing and marginal osteophyte formation is present. No acute fracture or dislocation is identified. Chondrocalcinosis is present. Small joint effusion is present. Left knee: Mild marginal osteophyte formation is seen in the medial femorotibial joint. The femorotibial joint space appears preserved. No acute fracture or dislocation is identified. Soft tissue structures appear within normal limits. IMPRESSION: 1. No acute osseous abnormality is identified in bilateral knees. 2. Mild degenerative changes of the right medial femorotibial joint with chondrocalcinosis and small joint effusion. 3. Mild degenerative changes of the left medial femorotibial joint. XR Bilateral Feet 04/2025 Findings: Right foot: No acute fracture or dislocation is identified. Degenerative changes are seen at the midfoot with joint space narrowing of the 2nd and 3rd tarsometatarsal joints. Small plantar calcaneal enthesophyte is present. Subcutaneous edema is seen in the dorsal foot. Left foot: No acute fracture or dislocation is identified. Small plantar and posterior calcaneal enthesophytes are present. Subcutaneous edema is seen in the dorsal foot. IMPRESSION: 1. No acute osseous abnormality is identified in bilateral feet. 2. Degenerative changes in the right midfoot with joint space narrowing of the 2nd and 3rd tarsometatarsal joints. 3. Small bilateral calcaneal enthesophytes. XR Bilateral Wrists 03/2025 Findings: Right wrist: Radiocarpal joint space narrowing and marginal osteophyte formation is present. No acute fracture or dislocation is identified. Chondrocalcinosis is seen of the triangular fibrocartilage complex. Left wrist: Mild radiocarpal joint space narrowing is present. No acute fracture or dislocation is identified. Soft tissue structures appear within normal limits. IMPRESSION: 1. Mild degenerative changes in bilateral radiocarpal joints. 2. Chondrocalcinosis in the right triangular fibrocartilage complex. XR Bilateral Hands 03/2025 Findings: Left hand: There is joint space narrowing and marginal osteophyte formation at the 2nd-5th DIP joints. The metacarpophalangeal joint spaces are preserved. No acute fracture or dislocation is identified. Soft tissue structures appear within normal limits. Right hand: There is joint space narrowing and marginal osteophyte formation at the 2nd-4th DIP joints and radiocarpal joint. The metacarpophalangeal joint spaces are preserved. No acute fracture or dislocation is identified. Chondrocalcinosis is seen in the triangular fibrocartilage complex. IMPRESSION: 1. Degenerative changes in bilateral hands. 2. Chondrocalcinosis in the right triangular fibrocartilage complex. Assessment & Plan Assessment & Plan (1) Inflammatory bowel arthritis: Comment: Inflammatory arthritis diagnosed 2018 Previously on Methotrexate SC - did not tolerate the side effects Leflunomide effective for a few years but then had breakthrough synovitis 11/2024 Switched to Rinvoq - 12/2024 Code(s): K63.9 - Disease of intestine, unspecified; M07.60 - Enteropathic arthropathies, unspecified site Category: Medical Plan: #IBD arthritis/Seronegative RA Patient is a 65-year-old female with history of Crohn's disease c/b inflammatory arthritis. Seropositive rheumatoid arthritis versus Crohn's related arthritis. Flare of her disease despite Rinvoq The patient's current treatment with Rinvoq is considered ineffective for her IBD-related inflammatory arthritis. A decision has been made to start Humira and to prescribe a bridging therapy of prednisone 5 mg daily to manage her current flare and provide relief through the holidays. A cortisone injection for the right wrist flare was administered. Blood work will be ordered for today. Follow-up will be scheduled in 3-4 months to assess the efficacy of Humira and to create a plan for tapering off the prednisone. Plan - Stop Rinvoq - Start Humira 40mg SC every 2 weeks - Prednisone 5mg daily - Labs today: CBC, CMP, ESR, CRP - RTC 4 months - Labs before visit: CBC, CMP, ESR, CRP (2) technician terminal and repeater (current) use of janus kinase inhibitor: Code(s): Z79.622 - technician terminal and repeater (current) use of Janus kinase inhibitor Plan: #Long-term Use of JOHAN inhibitors: Xeljanz (Tofacitinib)/ Rinvoq (Upadacitinib)/ Olumiant (Baricitinib) Discussed with patient the benefits and risks of JOHAN inhibitors for the management of the rheumatic condition Benefits include reduce pain, maintenance of remission and reduction of flares Risks include thromboembolic events, skin cancer and nonmelanoma skin cancers, other forms of cancer, cardiovascular alcohol and mortality Advise patient that they are to hold the medication and for up to 1 week after a febrile illness or an open skin wound Plan I discussed with the patient that her current medication, Rinvoq, is not adequately controlling her inflammatory arthritis, which is likely related to her Crohn's disease. We discussed transitioning her to Humira, and I explained that finding the right medication can involve a process of trying different options, as they work on various inflammatory pathways. I informed her that Hum phil is typically injected every two weeks. To manage her current severe flare, especially with the upcoming holidays, she will receive a prescription for a low daily dose of prednisone (5mg) as a spedey dging therapy until the Humira takes effect. She received a steroid injection to the right wrist. We will obtain blood work today and arrange a follow-up appointment in 3-4 months to assess her response to Humira, at which point we will plan to taper the prednisone. I spent 30 minutes reviewing the record and labs, taking a history, examining the patient, discussing the treatment plan, ordering diagnostic work up and documenting in the medical record Orders: Orders AMB Joint Injection/Aspiration Today M06.9 - Rheumatoid arthritis, unspecified Medications: New prednisone 5 mg PO DAILY 90 tabs 1RF K63.9 - Disease of intestine, unspecified, M07.60 - Enteropathic arthropathies, unspecified site adalimumab (Humira(CF) Pen) 40 mg (0.4 mL) subcut Q2W 2 ea 5RF M06.9 - Rheumatoid arthritis, unspecified Discontinued upadacitinib ER (Rinvoq) Discontinued Reason: Doctor's Order 15 mg PO DAILY 30 tabs 5RF K63.9 - Disease of intestine, unspecified, M06.00 - Rheumatoid arthritis without rheumatoid factor, unspecified site, M07.60 - Enteropathic arthropathies, unspecified site prednisone Take 3 pills for 5 days then 2 pills for 5 days then 1 pill for 5 days then stop Discontinued Reason: Doctor's Order 5 mg PO DIRECTED 30 tabs 0RF joint pain and swelling K63.9 - Disease of intestine, unspecified, M07.60 - Enteropathic arthropathies, unspecified site Coding Level of Care Code Est Pt Level 4 (41741) Add On Problem Visit Only Diagnoses Inflammatory bowel arthritis K63.9; M07.60 technician terminal and repeater (current) use of janus kinase inhibitor Z79.622 CPT Codes Coding - 08547 Medium joint: 86595 - Medium joint ([id number])
[2025-11-12 11:00] VITALS: BP 132/80; PULSE 74; O2SAT 98; BMI 35.9
--- OUTSIDE RECORDS SUMMARY | 2025-11-12 13:15 | XMS_ITS | Clinical Summary ---
Author Organization [facility] Address [address] [place] [address] Phone Care Team Providers Care Talent Development Analyst Name Role Phone Shala Hagan MD Primary Care Provider [phone] Allergies Active Allergy Reactions Criticality Noted Date [...] (one) time each day if needed. Active MAGNESIUM GLYCINATE ORAL Take 240 mg by mouth 1 (one) time each day. Active vit B complex no.12/niacin,B3 , (VITAMIN B COMPLEX NO.12-NIACIN ORAL) Take by mouth. Activ e upadacitinib (Rinvoq) 15 mg tablet extended release 24 hr Take 15 mg by mouth 1 (one) time each day. Active polyethylene glycol (Golytely) 236-22.74-6.74 -5.86 gram solution Take 4L by mouth once for one dose. May substitue any PEG. Starting at 2PM the day before your procedure drink 1 8oz glasses at your own pace until you complete half of the gallon. Finish 2nd half of the gallon at 8PM. 4000 mL 5 Active bisacodyL (DULCOLAX) 5 mg EC tablet Take 2 tablets by mouth right before beginning bowel prep. See instructions provided by the office 2 tablet 5 Active omeprazole (PriLOSEC) [address] capsule Take 1 capsule (40 mg total) by mouth 1 (one) time each day. 90 each 3 5 08/26/20 26 Active ezetimibe (ZETIA) 10 mg tablet TAKE 1 TABLET BY MOUTH 1 TIME EACH DAY. 90 tablet 1 5 Active amLODIPine-olme sartan (RODERICK) 5-20 mg per tablet TAKE 1 TABLET BY MOUTH 1 TIME EACH DAY. 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 was giving her a short course of [...] Encounters Date Type Department Care Team Description 11/04/2025 1:52 PM EST - 11/04/2025 11:59 PM EST [facility] at [address] [phone] Encounter for annual physical exam; Encounter for screening mammogram for malignant neoplasm of breast Discharge Disposition: Home or Self Care 10/16/2025 10:00 AM EST Office Visit Internal Medicine - [address] [phone] Shala Hagan MD Encounter for annual physical exam (Primary Dx); Primary hypertension; Rheumatoid arthritis in remission (CMS/HCC V24, CMS/HCC V28); Mixed hyperlipidemia; Other fatigue; H/O Crohn's disease; Other abnormal glucose; Encounter for lipid screening for cardiovascular disease; Need for prophylactic vaccination and inoculation against influenza; Encounter for screening mammogram for malignant neoplasm of breast 08/25/2025 Results Follow-Up Gastroenterology - [address] [phone] Parish Olvera DO 08/22/2025 1:30 PM EDT Anesthesia Event [facility] Endoscopy [address] [place] [phone] Nathan Malhotra MD 08/22/2025 12:06 PM EDT - 08/22/2025 11:59 PM EDT Hospital Encounter [facility] Endoscopy [address] [place] [phone] Parish Olvera DO Kapplan, Jacob A, CRNA History of Crohn's disease Discharge Disposition: Home or Self Care from Last 3 Months Immunizations Immunization Administration Dates Next Due Influenza trivalent, MDCK, 0 .5mL, preservative free (Flucelvax) 6mo and older 10/16/2025 Pneumococcal conjugate 20 va lent (Prevnar 20, PCV 20) 2mo and older 10/16/2025 Surgical History Surgery Date Site/Laterality Comments OTHER SURGICAL HISTORY Right PROCEDURE: MT EXC LESION TENDON SHEATH/CAPSULE W/SYNVCT FOOT; COMMENT: Ganglion cyst HAND SURGERY PROCEDURE: HISTORICAL HAND SURGERY BREAST LUMPECTOMY PROCEDURE: HISTORICAL BREAST LUMPECTOMY COLONOSCOPY 10/23/2017 PROCEDURE: HISTORICAL COLONOSCOPY; COMMENT: Tubular Adenomas. Repeat 5 yrs SHOULDER SURGERY Left PLANTAR FASCIA SURGERY Bilateral TOTAL SHOULDER ARTHROPLASTY Left COLONOSCOPY W/ BIOPSIES 08/22/2025 [facility] BACK SURGERY 05/05/2025 N/A [facility] BREAST MASS EXCISION Medical History Medical History Date Comments GERD (gastroesophageal reflux disease) 12/11/2018 hx of Osteoarthritis 10/26/2017 DX:Osteoarthriti s; COMMENT: knee Allergic rhinitis 12/03/2015 DX:Allergic rh initis Crohn's disease ([facility] V24 , [facility] V28) 10/26/2017 DX:Crohn's disease ([facility]) Essential hypertension 02/05/2018 DX:Essent ial hypertension Hyperlipidemia 10/26/2017 DX:Hyperlipidemi a Recurrent nephrolithiasis 10/26/2017 DX:Rec urrent nephrolithiasis Tubular adenoma 12/11/2018 DX:Tubular adeno ma Rheumatoid arthritis in delphine ssion ([facility] V24, [facility] V28) 04/07/2025 H/O Crohn's disease 04/07/2025 History of renal stone 04/07/2025 Plantar fasciitis, bilateral 04/07/2025 Rheumatoid arthritis ([facility]/HC C V24, [facility]/HCC V28) Crohn's disease ([facility] V24 , [facility] V28) Hiatal hernia Esophagitis Family History Medical History Relation Name Comments thyroid prob Brother X2 Eczema Father CA Father Stomach cancer Maternal Grandmother Diabetes Mother HTN Mother Cancer Paternal Grandfather Lupus Sister X2 Relation Name Status Comments Brother X2 Father Maternal Grandfather Maternal Grandmother Mother Alive Paternal Grandfather Paternal Grandmother Sister X2 Social History Tobacco Use Types Packs/Day Years Used Date Smoking Tobacco: Former Cigarettes 25 0 11/27/1978 - 11/27/2003 Smokeless Tobacco: Never Tobacco Cessation:Counseling Given: Not Answered Alcohol Use Standard Drinks/Week Comments Not Currently 0 (1 standard drink = 0.6 oz pur e alcohol) Housing Instability Answer Date Recorde d Are you worried that in the next 2 months you may not have stable housing? No 10/16/2025 Food Access & Nutrition Answer Date Rec orded Do you have access to a vari ety of food including fruits and vegetables? No 10/16/2025 Access to Healthcare Answer Date Record ed Within the last 3 months, ho w many times did you visit the emergency department for your medical care? 0 04/02/2025 Health Literacy Answer Date Recorded How often do you need to hav e someone help you when you read instructions, pamphlets, or other written material from your doctor or pharmacy? Never 10/16/2025 Caregiver: How often do you need to have someone help you when you read instructions, pamphlets, or other written material from your doctor or pharmacy? Not on file 10/16/2025 Financial Risk Answer Date Recorded How hard is it for you to pa y for the very basics like food, housing, medical care, and air conditioning / heating? Not very hard 10/16/2025 Transportation Answer Date Recorded Has the lack of transportati on kept you from meetings, work, or from getting things needed for daily living? No Has the lack of transportati on kept you from medical appointments or from getting medications? No 10/16/2025 Social Isolation Answer Date Recorded How often do you feel lonely or isolated from th ose around you? Never 10/16/2025 Food Risk Answer Date Recorded Within the past 12 months we worried whether our food would run out before we got money to buy more. Never true 10/16/2025 Within the past 12 months th e food we bought just didn't last and we didn't have money to get more. Never true 10/16/2025 Dependent Care Answer Date Recorded Do you need help finding or paying for care for your loved ones. For example, child psychiatrist or elderly care for an older adult? No 10/16/2025 Education Answer Date Recorded Do you think completing more education or training, like finishing a GED, going to college, or learning a trade, would be helpful for you? No 10/16/2025 Employment and Income Answer Date Recor ded During the last four weeks, have you been actively looking for work? No 10/16/2025 Living Situation Answer Date Recorded What is your living situation? Unrecognized valu e 10/16/2025 Interpersonal Safety Answer Date Record ed Physical Abuse Unrecognized value 08/22/2025 Verbal Abuse Unrecognized value 08/22/2025 Education Answer Date Recorded What is the highest level of school you have completed or the highest degree you have received? High school graduate 04/07/2025 Comments No Sex and Gender Information Value Date Recorded Sex Assigned at Female 10/21/2025 12:23 PM EST Legal Sex Female 2:38 AM EST Gender Identity Not on file Sexual Orientation Not on file Obstetrics History Para Term AB IAB SAB Ectopic Multiple Livin g Live Births 3 3 3 Date Outcome GA Total Labor Labor/2nd/3rd Weight Sex Type Anes PTL Ashley A1 A5 Name Clin Term Term Term Last Filed Vital Signs Vital Sign Reading Time Taken Comments Blood Pressure 128/75 10/16/2025 11:03 AM EST Pulse 61 10/16/2025 10:16 AM EST Temperature 35.9 C (96.6 F) 10/16/2025 10:16 AM EST Respiratory Rate 20 08/22/2025 2:21 PM EDT Oxygen Saturation 98% 10/16/2025 10:16 AM EST Inhaled Oxygen Concentration - - Weight 80.7 kg (178 lb) 11/04/2025 2:07 PM EST Height 154.9 cm (5' 1 ) 11/04/2025 2:07 PM EST Body Mass Index 33.63 11/04/2025 2:07 PM EST Plan of Treatment Upcoming Encounters Date Type Department Care Team (Late st Contact Info) Description 12/09/2025 9:00 AM EST Consult Gastroenterology - [address] [place] [address] Maryellen Valentine NP [address] [place] [address] 04/15/2026 10:30 AM EDT Office Visit Internal Medicine - [place] [address] [place] [address] Shala Hagan MD [facility] [place] [address] Health Maintenance Due Date Last Done Comments Breast Cancer Screening 1960 Cervical Cancer Screening: Pap Smear 1982 Zoster Vaccines (1 of 2) 2011 HIV Screening 03/28/2025 COVID-19 Vaccine (2 - season) 2025 12/30/2020 Hypertension/CHF/CAD Annual BMP Blood Test 04/07/2026 04/07/2025, 07/04/2021 Social Influencers of Health Screening 10/16/2026 10/16/2025 DTaP,Tdap,and Td Vaccines (2 - Td or Tdap) 12/08/2026 12/08/2016 Cholesterol Screening (Lipid Panel) 04/07/2030 04/07/2025 Colorectal Cancer Screening: Colonoscopy 08/22/2030 08/22/2025 RSV Immunization Adult Patients (1 - 1-dose 75+ series) 2036 Hepatitis C Screening Completed 01/01/2025 Depression Screening Completed 04/02/2025 Influenza Vaccine Completed 10/16/2025, , 09/03/2019, Additional history exists Pneumococcal Vaccine: 50+ Years Completed 10/16/2025, 07/19/2017 HIB Vaccines Aged Out No longer eligi [...] this topic Medical Devices Implanted Type Area Fire Medic Device Identifier Shelf Expiration Date Model / Serial / Lot Joints Shoulder Joints Shoulder Left: Shoulder Powder Surgifoam Absorb Gel - Sna - [id number] Implanted:Qty : 1 on 05/13/2025 by Chelsi Nicole MD at [facility] [employer] Right: Spine Lumbar [employer] [id number] 01/23/20271977 / NA / [id number] Procedures Procedure Name Priority Date/Time Associated Diagnosis Comments COLONOSCOPY Routine 08/22/2025 2:00 PM EDT History of Crohn's disease EGD Routine 08/22/2025 2:00 PM EDT History of Crohn's disease TISSUE EXAM Routine 08/22/2025 1:43 PM EDT History of Crohn's disease COMPREHENSIVE METABOLIC PANEL Routine 04/07/2025 11:35 AM EDT Adult general medical examination Other fatigue LIPID PANEL WITH REFLEX TO DIRECT LDL Routine 04/07/2025 11:35 AM EDT Adult general medical examination Mixed hyperlipidemia from Last 3 Months or Most Recently Relevant to Health Maintenance Results * COLONOSCOPY Anesthesia - MAC; [facility] ENDOSCOPY (08/22/2025 2:00 PM EDT) Anatomical Region Laterality Modality Endoscopy 08/22/2025 1:46 PM EDT Impressions 08/22/2025 2:01 PM EDT - Hemorrhoids found on perianal exam. - Two 4 to 5 mm polyps in the rectum, removed with a cold snare. Resected and retrieved. - The entire examined colon is normal. Biopsied. - The examination was otherwise normal on direct and retroflexion views. Recommendation: - F/U with primary GI provider (as instructed prior to the booking of today's procedure) to discuss a registered nurse hh case manager therapeutic plan. - Discharge patient to home. - High fiber diet. - Continue present medications. - Await pathology results. - Repeat colonoscopy for surveillance based on pathology results. Narrative 08/22/2025 2:01 PM EDT [facility] GI Patient Name: Roz Hadley Procedure Date: 08/22/2025 1:46 PM Date of : 1960 Age: 64 Gender: Female Note Status: Finalized Attending MD: Parish Olvera DO, [id number] Procedure Date No Time: 08/22/2025 Procedure: Colonoscopy Indications: High risk colon cancer surveillance: Personal history of colonic polyps, Incidental - Crohn's disease of the colon Providers: Parish Olvera DO Referring MD: Shala Hagan MD Medicines: Propofol per Anesthesia Complications: No immediate complications. Estimated blood loss: Minimal. Estimated Blood Loss: Estimated blood loss was minimal. Procedure: Pre-Anesthesia Assessment: - - Prior to the procedure, a History and Physical was performed, and patient medications and allergies were reviewed. The patient is competent. The risks and benefits of the procedure and the sedation options and risks were discussed with the patient. All questions were answered and informed consent was obtained. Patient identification and proposed procedure were verified by the physician, the nurse, the anesthesiologist, the card assembler and the photographic equipment technician in the pre-procedure area in the endoscopy suite. Mental Status Examination: alert and oriented. Airway Examination: normal oropharyngeal airway and neck mobility. Respiratory Examination: clear to auscultation. CV Examination: normal. Prophylactic Antibiotics: The patient does not require prophylactic antibiotics. Prior Anticoagulants: The patient has taken no anticoagulant or antiplatelet agents. ASA Grade Assessment: II - A patient with mild systemic disease. After reviewing the risks and benefits, the patient was deemed in satisfactory condition to undergo the procedure. The anesthesia plan was to use monitored anesthesia care (MAC). Immediately prior to administration of medications, the patient was re-assessed for adequacy to receive sedatives. The heart rate, respiratory rate, oxygen saturations, blood pressure, adequacy of pulmonary ventilation, and response to care were monitored throughout the procedure. The physical status of the patient was re-assessed after the procedure. - - Prior to the procedure, a History and Physical was performed, and patient medications and allergies were reviewed. The patient is competent. The risks and benefits of the procedure and the sedation options and risks were discussed with the patient. All questions were answered and informed consent was obtained. Patient identification and proposed procedure were verified by the physician, the nurse, the anesthesiologist, the card assembler and the photographic equipment technician in the pre-procedure area in the endoscopy suite. Mental Status Examination: alert and oriented. Airway Examination: normal oropharyngeal airway and neck mobility. Respiratory Examination: clear to auscultation. CV Examination: normal. Prophylactic Antibiotics: The patient does not require prophylactic antibiotics. Prior Anticoagulants: The patient has taken no anticoagulant or antiplatelet agents. ASA Grade Assessment: II - A patient with mild systemic disease. After reviewing the risks and benefits, the patient was deemed in satisfactory condition to undergo the procedure. The anesthesia plan was to use monitored anesthesia care (MAC). Immediately prior to administration of medications, the patient was re-assessed for adequacy to receive sedatives. The heart rate, respiratory rate, oxygen saturations, blood pressure, adequacy of pulmonary ventilation, and response to care were monitored throughout the procedure. The physical status of the patient was re-assessed after the procedure. After I obtained informed consent, the scope was passed under direct vision. Throughout the procedure, the patient's blood pressure, pulse, and oxygen saturations were monitored continuously. The Olympus Colonoscope was introduced through the anus and advanced to the cecum, identified by appendiceal orifice and ileocecal valve. The colonoscopy was performed without difficulty. The patient tolerated the procedure well. The quality of the bowel preparation was good. Findings: Hemorrhoids were found on perianal exam. Two sessile polyps were found in the rectum. The polyps were 4 to 5 mm in size. These polyps were removed with a cold snare. Resection and retrieval were complete. Verification of patient identification for the specimen was done. Estimated blood loss was minimal. The colon (entire examined portion) appeared normal. Biopsies were taken with a cold forceps for Crohn's disease surveillance. These biopsy specimens were sent to Pathology. Estimated blood loss was minimal. The exam was otherwise without abnormality on direct and retroflexion views. Procedure Code(s): --- Professional --- 73159, Colonoscopy, flexible; with removal of tumor(s), polyp(s), or other lesion(s) by snare technique 88988, 59, Colonoscopy, flexible; with biopsy, single or multiple Diagnosis Code(s): --- Professional --- K64.9, Unspecified hemorrhoids K50.10, Crohn's disease of large intestine without complications D12.8, Benign neoplasm of rectum CPT copyright 2020 [employer]. All rights reserved. The codes documented in this report are preliminary and upon electrician supervisor substation review may be revised to meet current compliance requirements. PARISH Olvera DO 08/22/2025 2:01:24 PM This report has been signed electronically.Parish Olvera DO Number of Addenda: 0 Note Initiated On: 08/22/2025 1:46 PM Scope Withdrawal Time: 0 hours 7 minutes 18 seconds Scope In: 1:48:29 PM Scope Out: 1:59:15 PM Endoscopy Department at [facility] - [address] [place] [phone] Procedure Note Parish Olvera DO - 08/22/2025 [facility] GI Patient Name: Roz Hadley Procedure Date: 08/22/2025 1:46 PM Date of : 1960 Age: 64 Gender: Female Note Status: Finalized Attending MD: Parish Olvera DO, [id number] Procedure Date No Time: 08/22/2025 Procedure: Colonoscopy Indications: High risk colon cancer surveillance: Personalhistory of colonic polyps, Incidental - Crohn's disease ofthe colon Providers: Parish Olvera DO Referring MD: Shala Hagan MD Medicines: Propofol per Anesthesia Complications: No immediate complications. Estimated blood loss: Minimal. Estimated Blood Loss: Estimated blood loss was minimal. Procedure: Pre-Anesthesia Assessment: - - Prior to the procedure, a History and Physicalwas performed, and patient medications and allergieswere reviewed. The patient is competent. The risks and benefits of the procedure and the sedation optionsand risks were discussed with the patient. Allquestions were answered and informed consent was obtained. Patient identification and proposed procedure were verified by the physician, the nurse, the anesthesiologist, the card assembler and thetechnician in the pre-procedure area in the endoscopy suite. Mental Status Examination: alert and oriented.Airway Examination: normal oropharyngeal airway and neck mobility. Respiratory Examination: clear to auscultation. CV Examination: normal. Prophylactic Antibiotics: The patient does not requireprophylactic antibiotics. Prior Anticoagulants: The patient has taken no anticoagulant or antiplatelet agents. ASA Grade Assessment: II - A patient with mild systemic disease. After reviewing the risks and benefits,the patient was deemed in satisfactory condition to undergo the procedure. The anesthesia plan was touse monitored anesthesia care (MAC). Immediately priorto administration of medications, the patient was re-assessed for adequacy to receive sedatives. The heart rate, respiratory rate, oxygen saturations, blood pressure, adequacy of pulmonary ventilation,and response to care were monitored throughout the procedure. The physical status of the patient was re-assessed after the procedure. - - Prior to the procedure, a History and Physicalwas performed, and patient medications and allergieswere reviewed. The patient is competent. The risks and benefits of the procedure and the sedation optionsand risks were discussed with the patient. Allquestions were answered and informed consent was obtained. Patient identification and proposed procedure were verified by the physician, the nurse, the anesthesiologist, the card assembler and thetechnician in the pre-procedure area in the endoscopy suite. Mental Status Examination: alert and oriented.Airway Examination: normal oropharyngeal airway and neck mobility. Respiratory Examination: clear to auscultation. CV Examination: normal. Prophylactic Antibiotics: The patient does not requireprophylactic antibiotics. Prior Anticoagulants: The patient has taken no anticoagulant or antiplatelet agents. ASA Grade Assessment: II - A patient with mild systemic disease. After reviewing the risks and benefits,the patient was deemed in satisfactory condition to undergo the procedure. The anesthesia plan was touse monitored anesthesia care (MAC). Immediately priorto administration of medications, the patient was re-assessed for adequacy to receive sedatives. The heart rate, respiratory rate, oxygen saturations, blood pressure, adequacy of pulmonary ventilation,and response to care were monitored throughout the procedure. The physical status of the patient was re-assessed after the procedure. After I obtained informed consent, the scope was passed under direct vision. Throughout theprocedure, the patient's blood pressure, pulse, and oxygen saturations were monitored continuously. TheOlympus Colonoscope was introduced through the anus and advanced to the cecum, identified by appendiceal orifice and ileocecal valve. The colonoscopy was performed without difficulty. The patient tolerated the procedure well. The quality of the bowel preparation was good. Findings: Hemorrhoids were found on perianal exam. Two sessile polyps were found in the rectum. The polyps were 4 to 5 mm in size. These polyps were removed with a cold snare. Resection and retrieval were complete. Verification of patientidentification for the specimen was done. Estimated blood loss was minimal. The colon (entire examined portion) appearednormal. Biopsies were taken with a cold forceps for Crohn's disease surveillance. These biopsy specimens weresent to Pathology. Estimated blood loss was minimal. The exam was otherwise without abnormality ondirect and retroflexion views. Procedure Code(s): --- Professional --- 27208, Colonoscopy, flexible; with removal of tumor(s), polyp(s), or other lesion(s) by snare technique [id number], 59, Colonoscopy, flexible; with biopsy,single or multiple Diagnosis Code(s): --- Professional --- K64.9, Unspecified hemorrhoids K50.10, Crohn's disease of large intestine without complications D12.8, Benign neoplasm of rectum CPT copyright 2020 [employer]. All rights reserved. The codes documented in this report are preliminary and upon electrician supervisor substation reviewmay be revised to meet current compliance requirements. PARISH Olvera DO 08/22/2025 2:01:24 PM This report has been signed electronically.Parish Olvera DO Number of Addenda: 0 Note Initiated On: 08/22/2025 1:46 PM Scope Withdrawal Time: 0 hours 7 minutes 18 seconds Scope In: 1:48:29 PM Scope Out: 1:59:15 PM Endoscopy Department at [facility] - [address] [place] [phone] IMPRESSION: - Hemorrhoids found on perianal exam. - Two 4 to 5 mm polyps in the rectum, removed witha cold snare. Resected and retrieved. - The entire examined colon is normal. Biopsied. - The examination was otherwise normal on directand retroflexion views. Recommendation: - F/U with primary GI provider (as instructed priorto the booking of today's procedure) to discuss a registered nurse hh case manager therapeutic plan. - Discharge patient to home. - High fiber diet. - Continue present medications. - Await pathology results. - Repeat colonoscopy for surveillance based on pathology results. Parish Olvera DO GI~PROCEDURE ORDERABLES Final Re sult * EGD Anesthesia - MAC; [facility] ENDOSCOPY (08/22/2025 2:00 PM EDT) Anatomical Region Laterality Modality Endoscopy 08/22/2025 1:37 PM EDT Impressions 08/22/2025 1:46 PM EDT - Z-line irregular, 35 cm from the incisors. Biopsied. WATS-3D brush biopsy specimens obtained. - Normal stomach. - Normal examined duodenum. Recommendation: - Discharge patient to home. - Resume previous diet. - Continue present medications. - Await pathology results. Narrative 08/22/2025 1:46 PM EDT [facility] GI Patient Name: Roz Hadley Procedure Date: 08/22/2025 1:37 PM Date of : 1960 Age: 64 Gender: Female Note Status: Finalized Attending MD: Parish Olvera DO, [id number] Procedure Date No Time: 08/22/2025 Procedure: Upper GI endoscopy Indications: Heartburn Providers: Parish Olvera DO Referring MD: Shala Hagan MD Medicines: Monitored Anesthesia Care Complications: No immediate complications. Estimated blood loss: Minimal. Estimated Blood Loss: Estimated blood loss was minimal. Procedure: Pre-Anesthesia Assessment: - - Prior to the procedure, a History and Physical was performed, and patient medications and allergies were reviewed. The patient is competent. The risks and benefits of the procedure and the sedation options and risks were discussed with the patient. All questions were answered and informed consent was obtained. Patient identification and proposed procedure were verified by the physician, the nurse, the anesthesiologist, the card assembler and the photographic equipment technician in the pre-procedure area in the endoscopy suite. Mental Status Examination: alert and oriented. Airway Examination: normal oropharyngeal airway and neck mobility. Respiratory Examination: clear to auscultation. CV Examination: normal. Prophylactic Antibiotics: The patient does not require prophylactic antibiotics. Prior Anticoagulants: The patient has taken no anticoagulant or antiplatelet agents. ASA Grade Assessment: II - A patient with mild systemic disease. After reviewing the risks and benefits, the patient was deemed in satisfactory condition to undergo the procedure. The anesthesia plan was to use monitored anesthesia care (MAC). Immediately prior to administration of medications, the patient was re-assessed for adequacy to receive sedatives. The heart rate, respiratory rate, oxygen saturations, blood pressure, adequacy of pulmonary ventilation, and response to care were monitored throughout the procedure. The physical status of the patient was re-assessed after the procedure. After obtaining informed consent, the endoscope was passed under direct vision. Throughout the procedure, the patient's blood pressure, pulse, and oxygen saturations were monitored continuously. The Endoscope was introduced through the mouth, and advanced to the third part of duodenum. The upper GI endoscopy was accomplished without difficulty. The patient tolerated the procedure well. Findings: The Z-line was irregular and was found 35 cm from the incisors. Biopsies were taken with a cold forceps for histology. Wide Area Transepithelial Sampling (WATS-3D [place] Biopsy) was performed for histology and samples sent for Computer-Assisted 3-Dimensional analysis. Estimated blood loss was minimal. The stomach was normal. The examined duodenum was normal. Procedure Code(s): --- Professional --- 55031, Esophagogastroduodenoscopy, flexible, transoral; with biopsy, single or multiple Diagnosis Code(s): --- Professional --- K22.89, Other specified disease of esophagus R12, Heartburn CPT copyright 2020 [employer]. All rights reserved. The codes documented in this report are preliminary and upon electrician supervisor substation review may be revised to meet current compliance requirements. PARISH Olvrea DO 08/22/2025 1:46:24 PM This report has been signed electronically.Parish Olvera DO Number of Addenda: 0 Note Initiated On: 08/22/2025 1:37 PM Scope In: Scope Out: Endoscopy Department at [facility] - [address] [place] [id number] Procedure Note Parish Olvera DO - 08/22/2025 [facility] GI Patient Name: Roz Hadley Procedure Date: 08/22/2025 1:37 PM Date of : 1960 Age: 64 Gender: Female Note Status: Finalized Attending MD: Parish Olvera DO, [id number] Procedure Date No Time: 08/22/2025 Procedure: Upper GI endoscopy Indications: Heartburn Providers: Parish Olvera DO Referring MD: Shala Hagan MD Medicines: Monitored Anesthesia Care Complications: No immediate complications. Estimated blood loss: Minimal. Estimated Blood Loss: Estimated blood loss was minimal. Procedure: Pre-Anesthesia Assessment: - - Prior to the procedure, a History and Physicalwas performed, and patient medications and allergieswere reviewed. The patient is competent. The risks and benefits of the procedure and the sedation optionsand risks were discussed with the patient. Allquestions were answered and informed consent was obtained. Patient identification and proposed procedure were verified by the physician, the nurse, the anesthesiologist, the card assembler and thetechnician in the pre-procedure area in the endoscopy suite. Mental Status Examination: alert and oriented.Airway Examination: normal oropharyngeal airway and neck mobility. Respiratory Examination: clear to auscultation. CV Examination: normal. Prophylactic Antibiotics: The patient does not requireprophylactic antibiotics. Prior Anticoagulants: The patient has taken no anticoagulant or antiplatelet agents. ASA Grade Assessment: II - A patient with mild systemic disease. After reviewing the risks and benefits,the patient was deemed in satisfactory condition to undergo the procedure. The anesthesia plan was touse monitored anesthesia care (MAC). Immediately priorto administration of medications, the patient was re-assessed for adequacy to receive sedatives. The heart rate, respiratory rate, oxygen saturations, blood pressure, adequacy of pulmonary ventilation,and response to care were monitored throughout the procedure. The physical status of the patient was re-assessed after the procedure. After obtaining informed consent, the endoscope was passed under direct vision. Throughout theprocedure, the patient's blood pressure, pulse, and oxygen saturations were monitored continuously. TheEndoscope was introduced through the mouth, and advanced tothe third part of duodenum. The upper GI endoscopy was accomplished without difficulty. The patienttolerated the procedure well. Findings: The Z-line was irregular and was found 35 cm fromthe incisors. Biopsies were taken with a cold forcepsfor histology. Wide Area Transepithelial Sampling(WATS-3D [place] Biopsy) was performed for histology andsamples sent for Computer-Assisted 3-Dimensional analysis. Estimated blood loss was minimal. The stomach was normal. The examined duodenum was normal. Procedure Code(s): --- Professional --- 30782, Esophagogastroduodenoscopy, flexible, transoral; with biopsy, single or multiple Diagnosis Code(s): --- Professional --- K22.89, Other specified disease of esophagus R12, Heartburn CPT copyright 2020 [employer]. All rights reserved. The codes documented in this report are preliminary and upon electrician supervisor substation reviewmay be revised to meet current compliance requirements. PARISH Olvera DO 08/22/2025 1:46:24 PM This report has been signed electronically.Parish Olvera DO Number of Addenda: 0 Note Initiated On: 08/22/2025 1:37 PM Scope In: Scope Out: Endoscopy Department at [facility] - [address] [place] [id number] IMPRESSION: - Z-line irregular, 35 cm from the incisors. Biopsied. WATS-3D brush biopsy specimens obtained. - Normal stomach. - Normal examined duodenum. Recommendation: - Discharge patient to home. - Resume previous diet. - Continue present medications. - Await pathology results. us Parish Olvera DO GI~PROCEDURE ORDERABLES Final Re sult * Tissue exam (08/22/2025 1:43 PM EDT) Final Diagnosis A. Esophagus, Ge junction biopsies: Gastroesophageal mucosa with chronic inflammation and reactive changes. No intestinal metaplasia or dysplasia identified. B. Colon, random biopsy: Benign colonic mucosa with no specific pathologic change. No colitis, granuloma, or dysplasia identified. C. Rectum, polyps x 2: Hyperplastic polyp. Separate benign fragments of colonic mucosa with lymphoid aggregates. 08/25/2025 10:57 AM EDT [facility] HOSPITAL LAB at 1057 EDT Gross Description A. Esophagus, Ge junction bx's: Labeled ge juncti esophagus . Received in formalin are two soft to rubbery, [id number] to red, tissue fragments, approximately measuring 0.45 cm and 0.6 cm in greatest diameters, which are wrapped in paper and submitted in toto in one cassette, two pieces, multiple levels. B. Colon, biopsy random: Labeled colon biopsy ra . Received in formalin, are five irregular soft to rubbery, bolivar-pink to red, tissue fragments, approximately ranging from 0.3 cm to 0.6 cm in greatest diameters, which are wrapped in paper and submitted in toto in one cassette, five pieces, multiple levels. Please note: Small tissue fragments may not survive processing. C. Large Intestine, Rectum, polyp x2: Labeled rectum polyp x 2 . Received in formalin, are four irregular soft to rubbery, uvyef-wvo-scag to red, polypoid tissue fragments, approximately ranging from 0.6 cm to 0.9 cm in greatest diameters, in which two polypoid tissue fragments are inked green at the margin, and are wrapped in paper and submitted in toto in one cassette, four pieces, multiple levels. hs/DG 08/25/2025 10:57 AM EDT [facility] Disclaimer Unless otherwise specified, all tissue is 10% NB formalin fixed and paraffin embedded. 08/25/2025 10:57 AM EDT [facility] Tissue Esophageal structure / Unknown 08/22/2025 1:43 PM EDT 08/22/2025 2:42 PM EDT Tissue specimen (specimen) Colon structure / Unknown 08/22/2025 1:56 PM EDT 08/22/2025 2:42 PM EDT Tissue specimen (specimen) Rectum structure / Unknown 08/22/2025 1:57 PM EDT 08/22/2025 2:42 PM EDT us Parish Olvera DO LAB PATHOLOGY ORDERABLES Final R esult [facility] [address] [place] [address], * (ABNORMAL) Lipid panel with reflex to direct LDL (04/07/2025 11:35 AM EDT) Cholesterol 207(H) 0 - 200 mg/dL LAB CHEMISTRY METHOD 04/07/2025 3:44 PM EDT [facility] Triglycerides 69 0 - 150 mg/dL LAB CHEMISTRY METHOD 04/07/2025 3:44 PM EDT [facility] HDL 73 >=40 mg/dL LAB CHEMISTRY METHOD 04/07/2025 3:44 PM T [facility] LDL Calculated 120(H) 0 - 100 mg/dL LAB CHEMISTRY METHOD 04/07/2025 3:44 PM EDT [facility] VLDL Cholesterol Wade 13.8 mg/dL LAB CHEMISTRY METHOD 04/07/2025 3:44 PM T [facility] Non HDL Chol. (LDL+VLDL) 134 <145 mg/dL LAB CHEMISTRY METHOD 04/07/2025 3:44 PM [facility] Chol/HDL Ratio 2.8 0.0 - 4.4 LAB CHEMISTRY METHOD 04/07/2025 3:44 PM [facility] Blood Venous blood specimen / Unknown Venipuncture / Unknown 04/07/2025 11:35 AM EDT 04/07/2025 11:35 AM EDT Shala Hagan MD LAB BLOOD ORDERABLES Final Resul t [facility] [address] [place] [address], [place] [phone] * Comprehensive metabolic panel (04/07/2025 11:35 AM EDT) Sodium 141 133 - 145 mmol/L LAB CHEMISTRY METHOD 04/07/2025 3:44 PM [facility] Potassium 4.0 3.5 - 5.5 mmol/L LAB CHEMISTRY METHOD 04/07/2025 3:44 PM [facility] Chloride 109 96 - 110 mmol/L LAB CHEMISTRY METHOD 04/07/2025 3:44 PM [facility] CO2 28 21 - 32 mmol/L LAB CHEMISTRY METHOD 04/07/2025 3:44 PM [facility] Anion Gap 4 3 - 11 LAB CHEMISTRY METHOD 04/07/2025 3:44 PM [facility] Glucose 88 70 - 100 mg/dL LAB CHEMISTRY METHOD 04/07/2025 3:44 PM [facility] BUN 12 5 - 25 mg/dL LAB CHEMISTRY METHOD 04/07/2025 3:44 PM [facility] Creatinine 0.50 0.50 - 1.10 mg/dL LAB CHEMISTRY METHOD 04/07/2025 3:44 PM [facility] eGFR 106 >=60 mL/min/1. 73m2 LAB CHEMISTRY METHOD 04/07/2025 3:44 PM [facility] Comment:Calculation based on the Chronic Kidney Disease Epidemiology Collaboration (CKD-EPI) equation refit without adjustment for race. BUN/Creatinine Ratio 24.0 LAB CHEMISTRY METHOD 04/07/2025 3:44 PM [facility] Calcium 9.5 8.5 - 10.5 mg/dL LAB CHEMISTRY METHOD 04/07/2025 3:44 PM [facility] AST (SGOT) 19 10 - 42 unit/L LAB CHEMISTRY METHOD 04/07/2025 3:44 PM [facility] ALT (SGPT) 28 10 - 60 unit/L LAB CHEMISTRY METHOD 04/07/2025 3:44 PM [facility] Alkaline Phosphatase 89 42 - 121 unit/L LAB CHEMISTRY METHOD 04/07/2025 3:44 PM [facility] Total Protein 7.1 6.0 - 8.0 g/dL LAB CHEMISTRY METHOD 04/07/2025 3:44 PM [facility] Albumin 4.2 3.2 - 5.0 g/dL LAB CHEMISTRY METHOD 04/07/2025 3:44 PM [facility] Total Bilirubin 0.5 0.0 - 1.4 mg/dL LAB CHEMISTRY METHOD 04/07/2025 3:44 PM [facility] Blood Venous blood specimen / Unknown Venipuncture / Unknown 04/07/2025 11:35 AM EDT 04/07/2025 11:35 AM EDT us Shala Hagan MD LAB BLOOD ORDERABLES Final Resul t [facility] [address] [place] [address], from Last 3 Months or Most Recently Relevant to Health Maintenance Insurance [facility] [employer] Care Teams Talent Development Analyst Relationship Specialty Start Date End Date Shala Hagan MD [address] [facility] [address] [place] [address] PCP - General Internal Medicine 03/28/25
== END 2025-11-12 11:40 | disposition home or self-care (01) ==
LOC: HO.RHES 10:35
PROVIDERS: PCP Student in an Organized Health Care Education/Training Program; Visit Provider Student in an Organized Health Care Education/Training Program
DX: M07.6 Enteropathic arthropathies (principal); M25.531 Pain in right wrist; M06.9 Rheumatoid arthritis, unspecified; Z79.622 Long term (current) use of Janus kinase inhibitor
CPT/HCPCS: 20605; 99214

== ENCOUNTER → 2025-11-12 10:35 | Outpatient (BNVA) | payer OTHER, SELFPAY | PROVIDERS: PCP Student in an Organized Health Care Education/Training Program; Visit Provider Student in an Organized Health Care Education/Training Program | DX: K63.9 Disease of intestine, unspecified (principal); M07.60 Enteropathic arthropathies, unspecified site; M06.00 Rheumatoid arthritis without rheumatoid factor, unspecified site; Z79.622 Long term (current) use of Janus kinase inhibitor | CPT/HCPCS: 20605; 99212; J2003; J3301 ==